=== PATIENT | female | born 1965 | race Two or more races ===

== ENCOUNTER 2023-04-09 07:23 | Outpatient (OUT) | payer BC, SELFPAY ==
[2023-04-09 07:49] LABS: Basophils Percent Auto 0.7 % (0.2-2.0); Eosinophils Absolute Auto 0.1 10^3/uL (0.0-0.7); Hematocrit 43.2 % (36.0-48.0); Immature Granulocytes Abs Auto 0.02 10^3/uL (0.00-0.03); Immature Granulocytes Pct Auto 0.4 % (0.0-0.5); Lymphocytes Absolute Auto 2.5 10^3/uL (1.2-3.8); Lymphocytes Percent Auto 44.1 % (20.5-60.0); Mean Corpuscular HGB Conc 34.7 g/dL (29.9-35.2); Mean Corpuscular Hemoglobin 32.5 pg (26.7-34.0); Mean Corpuscular Volume 93.5 fL (81.0-99.0); Mean Platelet Volume 10.2 fL (9.5-13.5); Monocytes Absolute Auto 0.5 10^3/uL (0.3-0.8); Monocytes Percent Auto 9.1 % (1.7-12.0); Neutrophils Absolute Auto 2.4 10^3/uL (1.4-6.5); Neutrophils Percent Auto 43.7 % (43.0-75.0); Platelet Count 216 10^3/uL (150-450); Red Blood Count 4.62 10^6/uL (4.20-5.40); Red Cell Distribution Width 12.2 % (11.0-15.0); White Blood Count 5.6 10^3/uL (4.0-11.0)
[2023-04-09 07:56] LABS: Estimated Average Glucose 108 mg/dL; Glycohemoglobin A1C 5.4 % (4.5-6.2)
[2023-04-09 08:11] LABS: Alanine Aminotransferase 27 U/L (14-59); Albumin Globulin Ratio 1.1; Albumin Level 3.9 g/dL (3.4-5.0); Alkaline Phosphatase 75 U/L (46-116); Anion Gap 10.6; Aspartate Amino Transferase 26 U/L (15-37); BUN Creatinine Ratio 13.8; Bilirubin Total 0.5 mg/dL (0.2-1.0); Calcium 9.1 mg/dL (8.5-10.1); Carbon Dioxide 28.8 mmol/L (21.0-32.0); Chloride 105 mmol/L (98-107); Chol HDL Ratio 3.6; Cholesterol 236 mg/dL (<=200); Estimated GFR (African America >60 (>=60); Estimated GFR (Non-African Ame >60 (>=60); Globulin 3.4 g/dL; Glucose 107 mg/dL (74-106); HDL Cholesterol 66 mg/dL (40-60); Potassium 4.4 mmol/L (3.5-5.1); Sodium 140 mmol/L (136-145); Total Protein 7.3 g/dL (6.4-8.2); Triglycerides 154 mg/dL (<=150); VLDL CHOLESTEROL 30.8 mg/dL
== END 2023-04-09 07:24 | disposition home or self-care (01) ==
PROVIDERS: PCP Internal Medicine; Visit Provider Internal Medicine
DX: Z00.00 Encounter for general adult medical examination without abnormal findings (principal)
CPT/HCPCS: 36415; 80053; 80061; 83036; 85025

== ENCOUNTER 2023-12-17 10:28 | Outpatient (OUT) | payer BC, SELFPAY ==
--- NOTE | 2023-12-17 10:32 | US_ITS ---
[address] [address] Patient Name: SRINIVAS AVILES MRN: [id number] date: 1965 Sex: F Assigned Patient Location: US Current Patient Location: US Accession/Order Number: [id number] Exam Date: 12/17/2023 10:45 Report Date: 12/17/2023 11:33 At the request of: NON-STAFF PHYSICIAN Procedure: US thyroid EXAMINATION: US thyroid HISTORY: nontoxic single thyroid nodule E04.1 COMPARISON: 02/28/2022 TECHNIQUE: Sonographic images of the thyroid gland were obtained. FINDINGS: The right thyroid lobe measures 3.9 x 0.9 x 1.3 cm. Single nodule. The thyroid isthmus measures 1.1 mm. 2 focal nodules The left thyroid lobe measures 3.7 x 1.0 x 1.0 cm. No focal nodules The most suspicious nodule: Thyroid isthmus. 1.6 x 1.1 x 0.8 cm. Mixed solid and cystic, hypoechoic, wide, smooth margins, no calcifications. TR 3 US/US thyroid IMPRESSION: 1.6 cm thyroid isthmus TR 3 nodule. 1 year follow-up recommended TI-RADS: The [employer] TI-RADS committee's white paper recommendations for thyroid lesions classified as TR3 (mildly suspicious) are listed below: > 1.5 cm. Follow-up ultrasound in 1, 3, and 5 years. > 2.5 cm. FNA. J. Am Graciela Radiol 2017;14:587-595. Electronically authenticated by: CHAPO NGUYEN Date: 12/17/2023 11:33
== END 2023-12-17 10:29 | disposition home or self-care (01) ==
LOC: US 10:28
PROVIDERS: PCP Internal Medicine
DX: E04.1 Nontoxic single thyroid nodule (principal)
CPT/HCPCS: 76536

== ENCOUNTER 2023-12-17 11:09 | Outpatient (OUT) | payer BC, SELFPAY ==
[2023-12-17 11:38] LABS: Basophils Absolute Auto 0.1 10^3/uL (0.0-0.1); Basophils Percent Auto 0.7 % (0.2-2.0); Eosinophils Absolute Auto 0.1 10^3/uL (0.0-0.7); Eosinophils Percent Auto 1.1 % (0.9-7.0); Hematocrit 42.7 % (36.0-48.0); Hemoglobin 14.4 g/dL (12.0-16.0); Immature Granulocytes Abs Auto 0.02 10^3/uL (0.00-0.03); Immature Granulocytes Pct Auto 0.3 % (0.0-0.5); Lymphocytes Percent Auto 40.4 % (20.5-60.0); Mean Corpuscular HGB Conc 33.7 g/dL (29.9-35.2); Mean Corpuscular Hemoglobin 31.6 pg (26.7-34.0); Mean Corpuscular Volume 93.6 fL (81.0-99.0); Monocytes Absolute Auto 0.6 10^3/uL (0.3-0.8); Monocytes Percent Auto 8.4 % (1.7-12.0); Neutrophils Absolute Auto 3.7 10^3/uL (1.4-6.5); Neutrophils Percent Auto 49.1 % (43.0-75.0); Platelet Count 241 10^3/uL (150-450); Red Blood Count 4.56 10^6/uL (4.20-5.40); Red Cell Distribution Width 11.9 % (11.0-15.0); White Blood Count 7.4 10^3/uL (4.0-11.0)
[2023-12-17 12:37] LABS: Alanine Aminotransferase 26 U/L (14-59); Albumin Globulin Ratio 1.2; Alkaline Phosphatase 82 U/L (46-116); Anion Gap 8.6; Aspartate Amino Transferase 21 U/L (15-37); BUN Creatinine Ratio 15.7; Bilirubin Total 0.6 mg/dL (0.2-1.0); Calcium 9.1 mg/dL (8.5-10.1); Carbon Dioxide 30.4 mmol/L (21.0-32.0); Chloride 105 mmol/L (98-107); Estimated GFR (African America >60 (>=60); Estimated GFR (Non-African Ame >60 (>=60); Globulin 3.3 g/dL; Glucose 83 mg/dL (74-106); Sodium 140 mmol/L (136-145); Total Protein 7.3 g/dL (6.4-8.2)
== END 2023-12-17 11:10 | disposition home or self-care (01) ==
LOC: LAB 11:10
PROVIDERS: PCP Internal Medicine; Visit Provider Internal Medicine Rheumatology
DX: E04.1 Nontoxic single thyroid nodule (principal); M15.0 Primary generalized (osteo)arthritis; Z79.899 Other long term (current) drug therapy
CPT/HCPCS: 36415; 76536; 80053; 85025

== ENCOUNTER 2024-02-24 12:56 | Outpatient (OUT) | payer BC, SELFPAY ==
--- NOTE | 2024-02-24 13:04 | XR_ITS ---
[address] [address] Patient Name: SRINIVAS AVILES MRN: [id number] date: 1965 Sex: F Assigned Patient Location: [facility] Current Patient Location: [facility] Accession/Order Number: [id number] Exam Date: 02/24/2024 13:25 Report Date: 02/24/2024 14:26 At the request of: LIA JARA Procedure: XR DEXA axial skeleton EXAMINATION: XR DEXA axial skeleton, 02/24/2024 1:25 PM EDT HISTORY: Osteoporosis COMPARISON: 2016. TECHNIQUE: Dual-energy X-ray absorptiometry (DEXA) bone density study performed for the axial skeleton. HISTORY: Osteoporosis FINDINGS: Bone mineral density AP spine L1-L4 measures 1.003 g/sq cm. T score -1.5. WHO classification: Osteopenia Bone mineral density of the femurs is 0.920 g/sq cm. T score -0.7. WHO classification: Normal XR/XR DEXA axial skeleton IMPRESSION: Osteopenia. Moderate fracture risk Electronically authenticated by: CHAPO NGUYEN Date: 02/24/2024 14:26
--- NOTE | 2024-02-24 13:10 | MM_ITS ---
Patient Name: SRINIVAS AVILES MR#: [id number] : 1965 Exam Date: 02/24/2024 Ordering Doctor: DR Dandre Osborn D.O. RADIOLOGY REPORT PROCEDURE: MM TOMOSYNTHESIS SCREENING BI COMPARISON: MG MAMM SCREEN 3D NHUNG CAD, 12/28/2022. MG MAMM SCREEN 3D NHUNG CAD, 12/19/2021. INDICATIONS: Screening Calculator Name NCI Breast Cancer Risk Assessment Tool 5 Year Breast Cancer Risk 1.80% Lifetime Breast Cancer Risk 9.00% Personal Breast Cancer No Personal Ovarian Cancer No Treatments None Family Cancers Mother with breast cancer at age ~60; Sister with thyroid cancer at age ~50; Niece with thyroid cancer at age 18; Sister with thyroid cancer at age ~55. LOCATION: [facility] BREAST COMPOSITION: There are scattered areas of fibroglandular density. FINDINGS: DIAGNOSTIC CATEGORY 1--NEGATIVE. NO CHANGE FROM COMPARISON ASSESSMENT. Scattered benign-appearing lymph nodes are present. RIGHT BREAST: No significant suspicious finding. LEFT BREAST: No significant suspicious finding. RECOMMENDATIONS: ROUTINE MAMMOGRAM AND CLINICAL EVALUATION IN 12 MONTHS. PLEASE NOTE: A NORMAL MAMMOGRAM DOES NOT EXCLUDE THE POSSIBILITY OF BREAST CANCER. A CLINICALLY SUSPICIOUS PALPABLE LUMP SHOULD BE BIOPSIED. Dictated by: Garo Tavares MD on 02/24/2024 at 14:08 Approved by: Garo Tavares MD on 02/24/2024 at 14:09
== END 2024-02-24 12:57 | disposition home or self-care (01) ==
LOC: RAD 12:56
PROVIDERS: PCP Internal Medicine; Visit Provider Internal Medicine Rheumatology
DX: Z12.31 Encounter for screening mammogram for malignant neoplasm of breast (principal); M81.0 Age-related osteoporosis without current pathological fracture; Z80.3 Family history of malignant neoplasm of breast; Z80.8 Family history of malignant neoplasm of other organs or systems; M85.80 Other specified disorders of bone density and structure, unspecified site
CPT/HCPCS: 77063; 77067; 77080

== ENCOUNTER 2024-08-24 10:32 | Outpatient (OUT) | payer MEDICARE, SELFPAY ==
--- NOTE | 2024-08-24 | US_ITS ---
The [address] [address] Patient Name: SRINIVAS AVILES MRN: [id number] date: 1965 Sex: F Assigned Patient Location: US Current Patient Location: LAB Accession/Order Number: [id number] Exam Date: 08/24/2024 11:45 Report Date: 08/26/2024 07:49 At the request of: BRINA HAIDER Procedure: US thyroid EXAMINATION: US thyroid HISTORY: FAMILY HISTORY OF MALIGNANT NEOPLASM OF THYROID COMPARISON: 12/17/2023 TECHNIQUE: Sonographic images of the thyroid gland were obtained. FINDINGS: The right thyroid lobe measures 4.0 x 1.3 x 1.3 cm. 3 focal nodules. The thyroid isthmus is thickened measuring 0.8 cm. Single nodule. The left thyroid lobe measures 4.6 x 1.2 x 1.1 cm. Single nodule The most suspicious nodule: Right thyroid lobe extending into the isthmus. 1.5 x 0.9 x 1.1 cm solid, isoechoic, wide, smooth margins, no calcifications. TR 3 US/US thyroid IMPRESSION: Stable multinodular thyroid TI-RADS: The [employer] TI-RADS committee's white paper recommendations for thyroid lesions classified as TR3 (mildly suspicious) are listed below: > 1.5 cm. Follow-up ultrasound in 1, 3, and 5 years. > 2.5 cm. FNA. J. Am Graciela Radiol 2017;14:[id number]. Electronically authenticated by: CHAPO NGUYEN Date: 08/26/2024 07:49
--- OUTSIDE RECORDS SUMMARY | 2024-08-24 10:53 | XMS_ITS | CCD ---
Author Organization [facility] Team Providers Care E Learning Specialist Name Role Phone PHYSICIAN, DEFAULT Admitting Unavailable PHYSICIAN, DEFAULT Attending Unavailable Arsh Robert Unavailable Francine Dobson Unavailable Dandre Osborn Unavailable VITALY, DR GONSALVES Primary Care Unavailable HAY ., DR HERNANDEZ Admitting Unavailable HAY ., DR HERNANDEZ Attending Unavailable HAY ., DR HERNANDEZ Consulting Unavailable VITALY, DR GONSALVES Admitting Unavailable BALL, DR GONSALVES Attending Unavailable BALL, DR GONSALVES Primary Care Unavailable VITALY, DR GONSALVES Consulting Unavailable TEJ, DR REGAN Pardo Consulting Unavailable VITALY, DR GONSALVES Admitting Unavailable BALL, DR GONSALVES Attending Unavailable BALL, DR GONSALVES Primary Care Unavailable BALL, DR GONSALVES Consulting Unavailable ZIEBER, DR REGAN Pardo Consulting Unavailable VITALY, DANDRE Primary Care Unavailable VENKATESH TAYLOR Admitting Unavailable VENKATESH TAYLOR Attending Unavailable SHANNAN COHEN Referring Unavailgiancarlo e DANDRE OSBORN Primary Care Unavailable MICHELLE AUGUSTIN Referring Unavailable VITALY, DANDRE May Primary Care Unavailable SHEA MAHAN Referring Unavailable VITALY, DANDRE May Primary Care Unavailable MIGUEL RANGEL Referring Unavailable VITALY, DANDRE May Primary Care Unavailable MIGUEL RANGEL Referring Unavailable VITALY, DANDRE May Primary Care Unavailable Ball , Dandre E Primary Care Provider SHEA MAHAN Attending Unavailable VITALY, DANDRE E Referring Unavailable VITALY, DANDRE E Primary Care Unavailable BISHEA KEITA Referring Unavailable VITALY, DANDRE May Primary Care Unavailable SHEA MAHAN Attending Unavailable VITALY, DANDRE E Referring Unavailable VITALY, DANDRE May Primary Care Unavailable NEGRITO, SHEA Referring Unavailable BALL, DANDRE E Primary Care Unavailable MIGUEL RANGEL Attending Unavailable VITALY, DANDRE May Referring Unavailable BALL, DANDRE E Primary Care Unavailable MICHELLE AUGUSTIN Attending Unavailable VITALY, DANDRE E Referring Unavailable VITALY, DANDRE E Primary Care Unavailable MIGUEL RANGEL Attending Unavailable BALL, DANDRE E Referring Unavailable DANDRE OSBORN Primary Care Unavailable Allergies Allergy Classification Reported Allergen(s) Allergy Type Date of Onset Reaction(s) Facility (1 source) patient allergy list reviewed by nurse or physicia Propensity to adverse reactions 6 Comment:[facility] Other (1 source) Allergies Reconciled Propensity to adverse reactions Unknown [facility] Other Medications Current Medications Medication Drug Class(es) Dates Sig (Normalized) Sig (Original) 0.5 ML semaglutide 0.5 MG/ML Auto-Injector [Wegovy] (2 sources) Start: 04-12-2023 inject 0.5 mL by subcutaneous injection every week Wegovy 0.25 MG/0.5ML 0.5 mL Subcutaneous weekly for 30 days Mar, Active azelastine hydrochloride 0.137 mg/actuat metered dose nasal spray (3 sources) Histamine-1 Receptor Antagonist take 2 spray(s) nasal route once daily Azelastine HCl 137 MCG/SPRAY 2 sprays in each nostril Nasally Once a day Active fluticasone propionate 0.05 mg/actuat metered dose nasal spray (3 sources) Corticosteroid take 2 spray(s) nasal route once daily Fluticasone Propionate 50 MCG/ACT 2 sprays (in each nostril) Nasally Once a day Active hydrocortisone 25 mg/ml topical cream (3 sources) Corticosteroid Start: 04-08-2023 Anusol-HC 2.5 % 1 application Externally Twice a day for 14 days Mar, Active meloxicam 15 mg oral tablet (13 sources) Nonsteroidal Anti-inflammatory Drug Start: 05-12-2024 take 1 tablet by mouth once daily as needed for arthritis meloxicam (MOBIC) 15 mg tablet TAKE 1 TABLET BY MOUTH EVERY DAY NEEDED FOR ARTHRITIS FLARE 05/12/2024 Active take 1 tablet by pj once daily as needed Meloxicam 15 MG 1 tablet Orally Once a d ay as needed Active Completed/Discontinued Medications Medication Drug Class(es) Dates Sig (Normalized) Sig (Original) Airborne - (12 sources) Airborne - as di rected Orally Not-Taking Airborne - as di rected Orally Active betamethasone 3 mg/ml / betamethasone acetate 3 mg/ml injectable suspension (1 source) Corticosteroid Start: 08-05-2024 End: 08-05-2024 6 mg, intra-articular, One-Time Injection, Starting on Sat08/05/24 at 1017, For 1 dose Calcium (12 sources) Phosphate Binder, Calcium Calcium 150 MG as directed Orally Not-Taking Calcium 150 MG a s directed Orally Active diclofenac sodium 0.01 mg/mg topical gel (6 sources) Nonsteroidal Anti-inflammatory Drug Start: 05-09-2022 Voltaren 1 % appl y 1-2 grams to affected area Transdermal twice a day as needed for 30 days Apr, Not-Taking Multi For Her - (12 sources) Multi For Her - as directed Orally Not-Taking Multi For Her - as directed Orally Active Naproxen (6 sources) Nonsteroidal Anti-inflammatory Drug Naproxen Not-Taking Naproxen Active triamcinolone acetonide 40 mg/ml injectable suspension (20 sources) Corticosteroid Start: 08-03-2022 Kenalog-40 Jul, 40 mg Start: 02-19-2017 Kenalog -40 mg February, 40 mg Start: 10-29-2016 Kenalog -40 mg Oct, 40 mg Problems Active Problems Problem Classification Problem Date Documented Da te Episodic/Chronic Esophageal disorders (5 sources) Esophageal disorders; Translations: [Gastroesophageal reflux disease with esophagitis without hemorrhage] Genitourinary symptoms and ill-defined conditions (6 sources) Mixed urinary incontinence; Translations: [Mixed incontinence] Onset: 06-25-2024 06-25-2024 Chronic Genitourinary symptoms and ill-defined conditions (2 sources) Dysuria; Translations: [Dysuria] Onset: 03-06-2022 Episodic Headache; including migraine (4 sources) New daily persistent headache; Translations: [New daily persistent headache (NDPH)] Chronic Hemorrhoids (4 sources) External hemorrhoids; Translations: [Residual hemorrhoidal skin tags] Episodic Intracranial injury (4 sources) Concussion with no loss of consciousness; Translations: [Concussion without loss of consciousness, initial encounter] Episodic Osteoarthritis (20 sources) Localized, primary osteoarthritis of the wrist; Translations: [Primary osteoarthritis, unspecified hand] Onset: 01-23-2016 Resolved: 11-26-2019 08-05-2024 Chronic Osteoporosis (2 sources) Primary osteoporosis; Translations: [Age-related osteoporosis without current pathological fracture] Onset: 01-12-2019 Resolved: 11-26-2019 Chronic Other and unspecified benign neoplasm (1 source) Benign lipomatous tumor; Translations: [Benign lipomatous neoplasm of skin and subcutaneous tissue of unspecified limb] Episodic Other bone disease and musculoskeletal deformities (1 source) Bone density finding; Translations: [Other specified disorders of bone density and structure, unspecified site] Episodic Other connective tissue disease (12 sources) Trochanteric bursitis of left hip; Translations: [Trochanteric bursitis, left hip] Episodic Other connective tissue disease (2 sources) Radial styloid tenosynovitis [de Quervain] Onset: 05-09-2022 Resolved: 05-09-2022 Episodic Other connective tissue disease (2 sources) Synovitis and tenosynovitis, unspecified Onset: 05-09-2022 Resolved: 05-09-2022 Episodic Other connective tissue disease (3 sources) Pain in left finger(s); Translations: [PAIN IN LEFT FINGERS] Onset: 10-13-2022 Episodic Other connective tissue disease (2 sources) Radial styloid tenosynovitis; Translations: [Radial styloid tenosynovitis] Onset: 03-06-2016 Resolved: 11-26-2019 Episodic Other connective tissue disease (1 source) Disorder of soft tissue; Translations: [Other specified soft tissue disorders] Episodic Other ear and sense organ disorders (1 source) Hearing loss; Translations: [Unspecified hearing loss, bilateral] Chronic Other nervous system disorders (12 sources) Chronic pain; Translations: [Other chronic pain] Chronic Other nervous system disorders (3 sources) Other chronic pain; Translations: [Other chronic pain] Onset: 02-13-2022 Resolved: 03-29-2022 Chronic Other nervous system disorders (1 source) Other acute postprocedural pain; Translations: [Other acute postprocedural pain] Onset: 02-26-2024 Episodic Other non-traumatic joint disorders (12 sources) Hip pain; Translations: [Pain in unspecified hip] Episodic Other non-traumatic joint disorders (2 sources) Pain in right wrist Onset: 05-09-2022 Resolved: 05-09-2022 Episodic Other non-traumatic joint disorders (2 sources) Arthralgia of the pelvic region and thigh; Translations: [Pain in joint, pelvic region and thigh] Onset: 06-23-2015 Resolved: 11-26-2019 Episodic Other non-traumatic joint disorders (1 source) Pain in left wrist; Translations: [Pain in left wrist] Onset: 05-13-2024 Episodic Other non-traumatic joint disorders (1 source) Other instability, right wrist; Translations: [Other instability, right wrist] Onset: 07-22-2024 Episodic Other nutritional; endocrine; and metabolic disorders (2 sources) Overweight Episodic Other screening for suspected conditions (not mental disorders or infectious disease) (9 sources) Encounter for screening mammogram for malignant neoplasm of breast; Translations: [Patient encounter status] Onset: 12-28-2022 Episodic Other upper respiratory infections (2 sources) Acute maxillary sinusitis; Translations: [Acute maxillary sinusitis] Onset: 01-27-2018 Resolved: 11-26-2019 Episodic Prolapse of female genital organs (3 sources) Midline cystocele; Translations: [Cystocele, midline] Chronic Residual codes; unclassified (12 sources) Postprocedural state finding; Translations: [Other specified postprocedural states] Episodic Residual codes; unclassified (1 source) Family history of malignant neoplasm of breast; Translations: [FAMILY HX MALIG NEOPLASM OF BREAST] Onset: 01-05-2023 Episodic Residual codes; unclassified (1 source) Family history of malignant neoplasm of other organs or systems; Translations: [FAM HX MALIG NEOPLASM OTH ORGN/SYS] Onset: 01-05-2023 Episodic Residual codes; unclassified (1 source) Postmenopausal state; Translations: [Asymptomatic menopausal state] Episodic Residual codes; unclassified (1 source) Other specified postprocedural states; Translations: [Other specified postprocedural states] Onset: 02-26-2024 Episodic Screening and history of mental health and substance abuse codes (1 source) Encounter for screening for depression; Translations: [Encounter for screening for depression] Onset: 06-25-2024 Episodic Spondylosis; intervertebral disc disorders; other back problems (12 sources) Lumbar spondylosis; Translations: [Spondylosis without myelopathy or radiculopathy, lumbar region] Onset: 06-23-2015 Resolved: 07-12-2022 Chronic Sprains and strains (6 sources) Whiplash injury to neck; Translations: [Sprain of ligaments of cervical spine, initial encounter] Resolved: 05-13-2020 Episodic Thyroid disorders (6 sources) Nontoxic single thyroid nodule; Translations: [Thyroid nodule] Onset: 03-06-2022 Chronic Unclassified (1 source) Gynecologic Exam Onset: 06-25-2024 Unclassified (1 source) Low back pain, unspecified; Translations: [Low back pain, unspecified] Onset: 01-31-2024 Viral infection (1 source) Disease caused by 2019-nCoV; Translations: [COVID-19] Past or Other Problems Problem Classification Problem Date Documented Date Episodic/Chronic Bacterial infection; unspecified site (1 source) Bacterial infectious disease; Translations: [Bacterial infection, unspecified, in conditions classified elsewhere and of unspecified site] Onset: 01-27-2018 Resolved: 11-26-2019 Episodic Mood disorders (2 sources) Mood disorders Onset: 06-25-2024 06-25-2024 Other and unspecified benign neoplasm (1 source) Lipoma (clinical); Translations: [Lipoma of unspecified site] Onset: 06-23-2015 Resolved: 11-26-2019 Episodic Other connective tissue disease (2 sources) Trochanteric bursitis, left hip Onset: 02-13-2022 Resolved: 03-29-2022 Episodic Other connective tissue disease (1 source) Specific bursitis often of occupational origin; Translations: [Specific bursitides often of occupational origin] Onset: 01-23-2016 Resolved: 11-26-2019 Episodic Other ear and sense organ disorders (1 source) Sensorineural hearing loss, bilateral; Translations: [Sensorineural hearing loss, bilateral] Onset: 01-12-2019 Resolved: 11-26-2019 Chronic Other non-traumatic joint disorders (2 sources) Pain in unspecified hip Onset: 02-13-2022 Resolved: 03-29-2022 Episodic Other non-traumatic joint disorders (1 source) Disorder of bursa of shoulder region; Translations: [Unspecified disorders of bursae and tendons in shoulder region] Onset: 04-09-2016 Resolved: 11-26-2019 Episodic Other nutritional; endocrine; and metabolic disorders (2 sources) Overweight; Translations: [Overweight] Onset: 01-23-2016 Resolved: 11-26-2019 Episodic Other nutritional; endocrine; and metabolic disorders (2 sources) Body mass index 25-29 - overweight; Translations: [Body mass index 28.0-28.9, adult] Onset: 01-23-2016 Resolved: 11-26-2019 Episodic Other upper respiratory disease (1 source) Chronic pharyngitis; Translations: [Chronic pharyngitis] Resolved: 05-13-2020 Chronic Residual codes; unclassified (1 source) Family history of cancer; Translations: [Family history of malignant neoplasm of other organs or systems] Resolved: 01-23-2021 Episodic Residual codes; unclassified (1 source) H/O: risk factor; Translations: [Other specified personal history presenting hazards to health] Resolved: 11-26-2019 Episodic Residual codes; unclassified (1 source) Pain Onset: 01-31-2024 Episodic Rheumatoid arthritis and related disease (1 source) Rheumatoid arthritis; Translations: [Rheumatoid arthritis, unspecified] Resolved: 11-26-2019 Chronic Skin and subcutaneous tissue infections (2 sources) Cellulitis of left finger; Translations: [Carbuncle of neck] Onset: 02-08-2016 Resolved: 11-26-2019 Episodic Spondylosis; intervertebral disc disorders; other back problems (3 sources) Low back pain; Translations: [Lumbago] Onset: 11-15-2016 Resolved: 11-26-2019 Episodic Unclassified (2 sources) Other low back pain M54.59 Onset: 02-13-2022 Resolved: 03-29-2022 Unclassified (2 sources) Onset: 06-25-2024 06-25-2024 Results Test Name Value Interpretation Reference Range Facility $ Medium Joint Injectionon 1 Miguel Rangel MD 08/05/2024 9:50 PM $ Medium Joint Injection (DRUJ) on 08/05/2024 10:17 AM Indications: pain Details: 25 G needle, dorsal approach Medications: 6 mg betamethasone acet & sod phos 6 mg/mL Outcome: tolerated well, no immediate complications Procedure, treatment alternatives, risks and benefits explained, specific risks discussed. Consent was given by the patient. Patient was prepped and draped in the usual sterile fashion. MANUALLY TRANSCRIBED RESULTS [facility] MR ARTHROGRAM WRIST RT W CON Ton 07-23-2024 MR ARTHROGRAM WRIST RT W CONT MR ARTHROGRAM WRIST RT W CONT HISTORY AND/OR TECH NOTES Suma Loveos a 59 y.o. year old female Exam:MR arthrogram wrist right with contrast Diagnosis:DRUJ (distal radioulnar joint) arthrosis, primary, right DRUJ (distal radioulnar joint) instability, post-traumatic, right Patient Symptoms:pt. States that she is having weakness in her right wrist. ?She stats that feels as if it is not in place. ?She also has some pain. ?Follow up to x-rays that were done. Pertinent Cancer and Surgical History:none Markers:none Image count: 7 Series PROCEDURE MRI of the right wrist after arthrogram injection of contrast done and reported separate COMPARISON May 13 FINDINGS Adequate contrast within the radiocarpal and ulnar carpal joint recess No contrast seen passing into the distal intercarpal row or into the distal radioulnar joint capsule There is significant fluid however and capsular thickening at the distal radial ulnar joint and similarly extending to the ulnar carpal recess. This may relate to some capsular thickening and/or synovitis It looks like the volar aspect of the distal radioulnar joint capsule may be disrupted or deficient with dorsal subluxation of the distal ulna degenerated into a bulging the skin surface in that region There is deformity of the proximal and ulnar aspect of the triangular fibrocartilage without a discrete tear or fragmentation otherwise The extensor carpi ulnaris looks intact without significant fluid along the tendon sheath. Mild heterogeneity and like deformity of the course suggesting some tendinopathy The scapholunate and lunotriquetral ligaments look intact There is mild cystic change in the lunate There is no fracture or AVN evident There is no advanced wrist arthritis Some fluid and contrast surrounding the dorsal wrist and extensor tendons may be related to the injection The look of the hamate looks grossly intact There is some loculated fluid at the volar radial margin of the wrist. This fills with contrast and suggest some synovial outpouching from the radiocarpal joint IMPRESSION: Findings suggest severe laxity or instability of the distal radial ulnar joint, particularly along the volar capsule margin, with ulnar negative variance and dorsal subluxation of the ulnar capsule There is what looks like severe capsular thickening and proliferation at the distal radial ulnar joint and ulnar carpal recess and some deformity of either fibrocartilage proper The trochlear fibrocartilage complex otherwise looks grossly intact without other malalignment, fracture, AVN, or advanced arthritis There also appears to be some synovial proliferation in the intercarpal and radiocarpal joint recesses with some synovial protrusion toward the volar radial aspect of the wrist Finalized by Sixto Jason MD on 07/23/2024 4:02 PM Normal [facility] [place] MR/CT ARTHROGRAM WRIST RT W INJon 07-22-2024 [place] MR/CT ARTHROGRAM WRIST RT W INJ [place] MR/CT ARTHROGRAM WRIST RT W INJ Indication: Chronic right wrist pain. Consent: Informed consent was obtained from the alert and oriented patient. Patient understands procedure and all of her questions were answered. Timeout: [place] timeout verification procedure was performed. PROCEDURE: Spot for needle passage was selected fluoroscopically at radial scaphoid joint. Overlying skin was prepped and draped in normal sterile fashion and anesthetized 1% lidocaine. 25-gauge butterfly needle was then advanced into the joint space. Injection of tiny amount of Omnipaque 300 contrast medium shows satisfactory position. Approximately 5 cc of mixture of dilute ProHance and saline was then injected. Reference air kerma 0.4 milligray. Patient tolerated the procedure well without significant immediate complication. 2 images were obtained. IMPRESSION: 1. Fluoroscopic guidance for right wrist injection for MRI arthrogram. Please see MRI arthrogram report dictated separately. Finalized by Ros Pantoja MD on 07/22/2024 4:47 PM Normal [facility] Cytologyon 06-25-2024 Cytology Normal [facility] Comment on above: Result Comment: [facility] [address] [place] [address] Gynecologic Cytology Consultation Patient Name:ROSENDO AVILESB:1965 (Age: 59)Gender:FTaken:4Reported:07/18/2024hysician(s):Michelle Augustin APRN-[facility] ([phone])Copy To: Rec. #:[id number]: #[id number] Final Cytologic Interpretation ThinPrep Pap Test (Cervical): Satisfactory for evaluation. NEGATIVE FOR INTRAEPITHELIAL LESION OR MALIGNANCY. The cytologic changes of atrophy are noted. 07/18/2024 Interpretation performed at [facility], [address] [place] [id number], License number: [id number]. Electronically Signed Out By BRUNA Castillo (ASCP) Date of Last Menstrual Period: (None Given) Other Clinical Conditions: Menopausal Clinical History: POSTMENOPAUSAL Z01.419 Plastic Design Applier exam wo/abn findings Source of Specimen ThinPrep Pap Test (Cervical) Thin Prep Pap (WINDOWS SYSTEMS ADMIN) Fee Code(s): G0145 The Pap test is a screening test with an inherent, but low, probability of error. The Pap test is primarily effective for the diagnosis and prevention of squamous cell carcinoma. Regular screening is critical for prevention. ThinPrep liquid-based slides, which meet the Recreation Programmer criteria for automated screening, have been screened by the ThinPrep Imaging System (as of 06/30/07) along with an additional manual rescreening by a classification and treatment director and, if indicated, by a pathologist. HIGH RISK HPV W/GENOon 06-25 HPV 31+33+35+39+45+51+52 +56+58+59+66+68 DNA ORION+probe Ql (Cvx) HPV SPECIMEN TYPE ThinPrep HPV 16 Negative (qualifier value) HPV 18 Negative (qualifier value) OTHER HIGH RISK HPV Negative (qualifier value) HPV types 31,33,35,39,45,52,56 ,58,59,66 and 68 DNA were undetectable. Normal [facility] Comment on above: Performed By: #### 7 1431-1 #### [facility] ([id number]) [address] [place] [address], [place] [address] [facility] ([id number]) [address] [place] [address], [address] [place] [address] MR CERVICAL SPINE WO CONTon 05-22-2024 MR CERVICAL SPINE WO CONT MR CERVICAL SPINE WO CONT Study: Cervical spine MRI without contrast. History: Chronic neck pain Comparison: November 28, 2007 Technique: Routine multiplanar multisequence MR imaging of the cervical spine was performed without contrast. Findings: C2-3 unremarkable Minimal disc bulging C3-4 without stenosis and unchanged C4-5 shows minimal posterior disc bulging without stenosis C5-6 shows moderate posterior disc osteophyte complex and facet hypertrophy unchanged with currently mild central canal stenosis and mild bilateral foraminal narrowing C6-7 shows mild posterior disc bulging without stenosis C7-T1 appropriate Appropriate signal within the vertebra setting for some mild discogenic signal at C5-6 Appropriate signal within posterior elements and cervical cord IMPRESSION: Multilevel disc disease and facet arthropathy with only mild central canal stenosis and mild bilateral foraminal narrowing C5-6, without acute change Finalized by Taco Arora MD on 05/22/2024 7:40 AM Normal [facility] XR WRIST LT MIN 3 VWSon 08-0 XR WRIST LT MIN 3 VWS XR WRIST LT MIN 3 VWS XR WRIST LT MIN 3 VWS Clinical history:Left wrist pain Comparison: None. Findings: Radiocarpal, intercarpal and first carpometacarpal joint degenerative change. No acute process fracture dislocation. Osteopenia. Impression: Degenerative changes without acute process identified. Finalized by Jarred Nelson MD on 05/14/2024 12:58 PM Normal [facility] XR WRIST RT MIN 3 VWSon 08-0 XR WRIST RT MIN 3 VWS XR WRIST RT MIN 3 VWS XR WRIST RT MIN 3 VWS CLINICAL HISTORY: Right wrist pain. COMPARISON: None. FINDINGS: 3 views of the right wrist. No acute fracture. No aggressive osseous lesion. Mild negative ulnar variance. Diffuse osseous demineralization. Alignment is otherwise within normal limits. IMPRESSION: * No acute fracture or malalignment. * Mild negative ulnar variance. Finalized by Shant Burns MD on 05/14/2024 1:01 PM Normal [facility] XR FOOT LEFT (MIN 3 VIEWS)on 02-27-2024 XR FOOT LEFT (MIN 3 VIEWS) EXAMINATION: THREE XRAY VIEWS OF THE LEFT FOOT 02/26/2024 10:48 am COMPARISON: None. HISTORY: ORDERING SYSTEM PROVIDED HISTORY: post op TECHNOLOGIST PROVIDED HISTORY: post op Reason for Exam: post op left foot hardware removal FINDINGS: Status post left foot hardware removal. No obvious complications. No acute fractures or malalignment. Soft tissue swelling around the foot. IMPRESSION: Status post left foot hardware removal. No obvious complications. Interpreted by: Rebecca Arana MD Signed by: Rebecca Arana MD 02/27/24 Final result Normal [facility] MG MAMM SCREEN 3D NHUNG CADon 12-28-2022 MG MAMM SCREEN 3D NHUNG CAD Patient: BRIDGER AVILES Exam Date: 12/28/2022 : 1965 Gender:F Ordering : DR DANDRE OSBORN D.O. Admission #: [id number] Family : Order #: [id number] CLICK HERE TO VIEW EXAM RADIOLOGY REPORT PROCEDURE: MAMMOGRAM SCREENING 3D BILATERAL CAD COMPARISON: MG MAMM SCREEN 3D NHUNG CAD, 12/19/2021. MG MAMM SCREEN NHUNG W CAD, 11/08/2020. MG MAMM SCREEN NHUNG W CAD, 07/09/2019. MG MAMM NHUNG SCRN W CAD DIG, 11/18/2010. INDICATIONS: Screening mammography Calculator Name NCI Breast Cancer Risk Assessment Tool 5 Year Breast Cancer Risk 1.70% Lifetime Breast Cancer Risk 9.50% Personal Breast Cancer No Personal Ovarian Cancer No Treatments None Family Cancers Mother with breast cancer at age 60; Sister with thyroid cancer at age 50; Niece with thyroid cancer at age 18; Sister with thyroid cancer at age 55. LOCATION: [facility] BREAST COMPOSITION: Scattered areas fibroglandular density. FINDINGS: DIAGNOSTIC CATEGORY 1--NEGATIVE. RIGHT BREAST: No significant suspicious finding. No significant change has occurred. LEFT BREAST: No significant suspicious finding. No significant change has occurred. RECOMMENDATIONS: ROUTINE MAMMOGRAM AND CLINICAL EVALUATION IN 12 MONTHS. PLEASE NOTE: A NORMAL MAMMOGRAM DOES NOT EXCLUDE THE POSSIBILITY OF BREAST CANCER. A CLINICALLY SUSPICIOUS PALPABLE LUMP SHOULD BE BIOPSIED. Dictated by: Regan Allen M.D. on 12/28/2022 at 12:30 Approved by: Regan Allen M.D. 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 No significant degeneration seen. XR/XR wrist RT 2V IMPRESSION:Unremarka ble exam Impression dictated by: Teddy Long M.D.05/09/2022 5:03 PM Dictation Location: [place] [address] Transcribed By: [facility] 05/09/221702 Dictated By: Teddy Long DO 05/09/221701 Signed By: 05/09/22 170 [facility] XR wrist RT 2V [facility] [employer] Other XR wrist RT 2V [facility] [employer] Other XR wrist RT 2V [address] [place] [address] [employer] Other XR wrist [place] 2[place] [address] No [facility] [employer] Other XR wrist RT 2V XRay Report [employer] Other XR wrist RT 2V Signed [employer] Other XR wrist RT 2V Patient: Bridger Aviles MR#: [id number] [facility] Other XR wrist RT 2V 8497 [employer] Other XR wrist RT 2V : 1965 Acct:[id number] [facility] Other XR wrist RT 2V Age/Sex: 57 / F ADM Date: 05/09/22 [facility] Other XR wrist RT 2V Loc: SOXD Room: Type: [facility] Other XR wrist RT 2V Attending Dr: Francine Dobson MD [facility] Other XR wrist RT 2V Copies to: Francine Dobson MD [facility] Other XR wrist RT 2V Ordering Provider: Francine Dobson MD [facility] Other XR wrist RT 2V Date of Service: 05/09/22 [facility] Other XR wrist RT 2V XR/XR wrist RT 2V: Right wrist pain [facility] Other XR wrist RT 2V 2 viewsRIGHT wrist plain film [facility] Other XR wrist RT 2V COMPARISON:None [facility] Other XR wrist RT 2V 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 No significant degeneration seen. [facility] Other XR wrist RT 2V XR/XR wrist RT 2V [facility] Other XR wrist RT 2V IMPRESSION:Unremarka ble exam [facility] Other XR wrist RT 2V Impression dictated by: Teddy Long M.D.05/09/2022 5:03 PM [facility] Other XR wrist RT 2V Dictation Location: [place] [address] [facility] Other XR wrist RT 2V Transcribed By: JAMAL 05/09/22 [facility] Other XR wrist RT 2V Dictated By: Teddy Long DO 05/09/22 [facility] Other XR wrist RT 2V Signed By: [employer] Other XR wrist RT 2V 05/09/22 170 [employer] Other CBC AUTO DIFFon 02-28-2022 BASO # 0.1 103/ul Normal 0.0-0.1 [facility] Comment on above: Performed By: #### C BC #### [facility] [address] [place] [address] Dr. Shirin Veras Basophils/100 WBC (Bld) 0.8 % Normal 0.2-2.0 [facility] Comment on above: Performed By: #### C BC #### [facility] [address] [place] [address] Dr. Shirin Veras EO # 0.1 103/ul Normal 0.0-0.7 [facility] Comment on above: Performed By: #### C BC #### [facility] [address] [place] [address] Dr. Shirin Veras Eosinophils/100 WBC (Bld) 1.9 % Normal 0.9-7.0 [facility] Comment on above: Performed By: #### C BC #### [facility] [address] [place] [address] Dr. Shirin Veras Erythrocyte distribution width (RBC) [Ratio] 11.8 % Normal 11.0-15.0 [facility] Comment on above: Performed By: #### C BC #### [facility] [address] [place] [address] Dr. Shirin Veras Hematocrit (Bld) [Volume fraction] 44.3 % Normal 36.0-48.0 [facility] Comment on above: Performed By: #### C BC #### [facility] [address] [place] [address] Dr. Shirin Veras Hemoglobin (Bld) [Mass/Vol] 15.3 g/dL Normal 12.0-16.0 [facility] Comment on above: Performed By: #### C BC #### [facility] [address] [place] [address] Dr. Shirin Veras IG # 0.03 10e3/ul Normal 0.00-0.03 [facility] Comment on above: Performed By: #### C BC #### [facility] [address] [place] [address] Dr. Shirin Veras IG % 0.5 % Normal 0.0-0.5 [facility] Comment on above: Performed By: #### C BC #### [facility] [address] [place] [address] Dr. Shirin Veras LYMPH # 2.6 103/ul Normal 1.2-3.8 [facility] Comment on above: Performed By: #### C BC #### [facility] [address] [place] [address] Dr. Shirin Veras Lymphocytes/100 WBC (Bld) 40.4 % Normal 20.5-60.0 [facility] Comment on above: Performed By: #### C BC #### [facility] [address] [place] [address] Dr. Shirin Veras MANUAL DIFF REQ NO Normal [facility] Comment on above: Performed By: #### C BC #### [facility] [address] [place] [address] Dr. Shirin Veras MCH (RBC) [Entitic mass] 32.6 pg Normal 26.7-34.0 [facility] Comment on above: Performed By: #### C BC #### [facility] [address] [place] [address] Dr. Shirin Veras MCHC (RBC) [Mass/Vol] 34.5 g/dL Normal 29.9-35.2 [facility] Comment on above: Performed By: #### C BC #### [facility] [address] [place] [address] Dr. Shirin Veras MCV (RBC) [Entitic vol] 94.5 fL Normal 81.0-99.0 [facility] Comment on above: Performed By: #### C BC #### [facility] [address] [place] [address] Dr. Shirin Veras MONO # 0.5 103/ul Normal 0.3-0.8 [facility] Comment on above: Performed By: #### C BC #### [facility] [address] [place] [address] Dr. Shirin Veras Monocytes/100 WBC (Bld) 8.1 % Normal 1.7-12.0 [facility] Comment on above: Performed By: #### C BC #### [facility] [address] [place] [address] Dr. Shirin Veras NEUT # 3.1 103/ul Normal 1.4-6.5 [facility] Comment on above: Performed By: #### C BC #### [facility] [address] [place] [address] Dr. Shirin Veras Neutrophils/100 WBC (Bld) 48.3 % Normal 43.0-75.0 [facility] Comment on above: Performed By: #### C BC #### [facility] [address] [place] [address] Dr. Shirin Veras Platelet mean volume (Bld) [Entitic vol] 10.1 fL Normal 9.5-13.5 [facility] Comment on above: Performed By: #### C BC #### [facility] [address] [place] [address] Dr. Shirin Veras PLT 224 103/ul Normal 150-450 [facility] Comment on above: Performed By: #### C BC #### [facility] [address] [place] [address] Dr. Shirin Veras RBC 4.69 106/ul Normal 4.20-5.40 [facility] Comment on above: Performed By: #### C BC #### [facility] [address] [place] [address] Dr. Shirin Veras WBC 6.4 103/ul Normal 4.0-11.0 [facility] Comment on above: Performed By: #### C BC #### [facility] [address] [place] [address] Dr. Shirin Veras GLYCOHEMOGLOBIN A1Con 2021 ADA RECOMMENDATION SEE BELOW Normal [facility] Comment on above: Result Comment: ADA RECOMMENDED LIMIT 4.0 - 6.0 ADA THERAPEUTIC TARGET < 7.0 ACTION SUGGESTED > 7.0 Performed By: #### A 1C #### [facility] [address] [place] [address] [address] Shirin Veras Glucose [Mass/Vol] 114 mg/dL Normal [facility] Comment on above: Performed By: #### A 1C #### [facility] [address] [place] [address] [address] Shirin Veras HbA1c (Bld) [Mass fraction] 5.6 % Normal 4.5-6.2 [facility] Comment on above: Performed By: #### A 1C #### [facility] [address] [place] [address] Dr. Shirin Veras LIPID PROFILEon 02-28-2022 CHOL-HDL RATIO NORM SEE BELOW Normal [facility] Comment on above: Result Comment: 3.3 - 4.4 LOW RISK 4.4 - 7.1 AVERAGE RISK 7.1 - 11.0 MODERATE RISK >11.0 HIGH RISK Performed By: #### T SH, CMP, LIPID #### [facility] [address] [place] [address] [address] Shirin Veras Cholesterol [Mass/Vol] 254 mg/dL Critically high <=200 [facility] Comment on above: Performed By: #### T SH, CMP, LIPID #### [facility] [address] [place] [address] [address] Shirin Veras Cholesterol in HDL [Mass/Vol] 65 mg/dL Critically high 40-60 [facility] Comment on above: Performed By: #### T SH, CMP, LIPID #### [facility] [address] [place] [address] [address] Shirin Veras Cholesterol in LDL [Mass/Vol] 164.2 mg/dL Normal [facility] Comment on above: Performed By: #### T SH, CMP, LIPID #### [facility] [address] [place] [address] [address] Shirin Veras Cholesterol.total/Ch olesterol in HDL [Mass ratio] 3.9 {ratio} Normal [facility] Comment on above: Performed By: #### T SH, CMP, LIPID #### [facility] [address] [place] [address] [address] Shirin Veras HDL NORMAL > or = 60 mg/dl - LOW CARDIOVASCULAR RISK <40 mg/dl - HIGH CARDIOVASCULAR RISK Normal [facility] Comment on above: Performed By: #### T SH, CMP, LIPID #### [facility] [address] [place] [address] [address] Shirin Veras LDL CALC NORMAL SEE BELOW Normal [facility] Comment on above: Result Comment: <100 mg/dl OPTIMAL 100 - 129 mg/dl NEAR OR ABOVE OPTIMAL 130 - 159 mg/dl BORDERLINE HIGH 160 - 189 mg/dl HIGH >190 mg/dl VERY HIGH Performed By: #### T SH, CMP, LIPID #### [facility] [address] [place] [address] [address] Shirin Veras Triglyceride [Mass/Vol] 124 mg/dL Normal <=150 [facility] Comment on above: Performed By: #### T SH, CMP, LIPID #### [facility] [address] [place] [address] [address] Shirin Veras VLDL CALC 24.8 mg/dL Normal [facility] Comment on above: Performed By: #### T SH, CMP, LIPID #### [facility] [address] [place] [address] [address] Shirin Veras PROF 14(COMP METB)on 022 Albumin [Mass/Vol] 4.1 g/dL Normal 3.4-5.0 [facility] Comment on above: Performed By: #### T SH, CMP, LIPID #### [facility] [address] [place] [address] [address] Shirin Veras Albumin/Globulin [Mass ratio] 1.2 {ratio} Normal [facility] Comment on above: Performed By: #### T SH, CMP, LIPID #### [facility] [address] [place] [address] [address] Shirin Veras ALP [Catalytic activity/Vol] 79 U/L Normal 46-116 [facility] Comment on above: Performed By: #### T SH, CMP, LIPID #### [facility] [address] [place] [address] [address] Shirin Veras ALT [Catalytic activity/Vol] 30 U/L Normal 14-59 [facility] Comment on above: Performed By: #### T SH, CMP, LIPID #### [facility] [address] [place] [address] [address] Shirin Veras Anion gap [Moles/Vol] 11.4 mmol/L Normal [facility] Comment on above: Performed By: #### T SH, CMP, LIPID #### [facility] [address] [place] [address] [address] Shirin Veras AST [Catalytic activity/Vol] 22 U/L Normal 15-37 [facility] Comment on above: Performed By: #### T SH, CMP, LIPID #### [facility] [address] [place] [address] Dr. Shirin Veras Bilirubin [Mass/Vol] 0.5 mg/dL Normal 0.2-1.0 [facility] Comment on above: Performed By: #### T SH, CMP, LIPID #### [facility] [address] [place] [address] [address] Shirin Veras Calcium [Mass/Vol] 8.8 mg/dL Normal 8.5-10.1 [facility] Comment on above: Performed By: #### T SH, CMP, LIPID #### [facility] [address] [place] [address] [address] Shirin Veras Chloride [Moles/Vol] 102 mmol/L Normal 98-107 [facility] Comment on above: Performed By: #### T SH, CMP, LIPID #### [facility] [address] [place] [address] [address] Shirin Veras CO2 [Moles/Vol] 29.5 mmol/L Normal 21.0-32.0 [facility] Comment on above: Performed By: #### T SH, CMP, LIPID #### [facility] [address] [place] [address] [address] Shirin Veras Creatinine [Mass/Vol] 0.69 mg/dL Normal 0.55-1.02 [facility] Comment on above: Performed By: #### T SH, CMP, LIPID #### [facility] [address] [place] [address] [address] Shirin Veras EGFR-AF CAMBODIAN >60 Normal >=60 [facility] Comment on above: Performed By: #### T SH, CMP, LIPID #### [facility] [address] [place] [address] [address] Shirin Veras EGFR-NON AF CAMBODIAN >60 Normal >=60 [facility] Comment on above: Performed By: #### T SH, CMP, LIPID #### [facility] [address] [place] [address] [address] Shirin Veras Globulin (S) [Mass/Vol] 3.3 g/dL Normal [facility] Comment on above: Performed By: #### T SH, CMP, LIPID #### [facility] [address] [place] [address] [address] Shirin Veras Glucose [Mass/Vol] 90 mg/dL Normal 74-106 [facility] Comment on above: Performed By: #### T SH, CMP, LIPID #### [facility] [address] [place] [address] [address] Shirin Veras Potassium [Moles/Vol] 3.9 mmol/L Normal 3.5-5.1 [facility] Comment on above: Performed By: #### T SH, CMP, LIPID #### [facility] [address] [place] [address] [address] Shirin Veras Protein [Mass/Vol] 7.4 g/dL Normal 6.4-8.[address] [facility] Comment on above: Performed By: #### T SH, CMP, LIPID #### [facility] [address] [place] [address] [address] Shirin Veras Sodium [Moles/Vol] 139 mmol/L Normal 136-145 [facility] Comment on above: Performed By: #### T SH, CMP, LIPID #### [facility] [address] [place] [address] [address] Shirin Veras Urea nitrogen [Mass/Vol] 16.0 mg/dL Normal 7.0-18.0 [facility] Comment on above: Performed By: #### T SH, CMP, LIPID #### [facility] [address] [place] [address] Dr. Shirin Veras Urea nitrogen/Creatinine [Mass ratio] 23.2 mg/mg Normal [facility] Comment on above: Performed By: #### T SH, CMP, LIPID #### [facility] [address] [place] [address] Dr. Shirin Veras TSHon 02-28-2022 TSH 1.145 uIU/mL Normal 0.358-3.[address] [facility] Comment on above: Performed By: #### T SH, CMP, LIPID #### [facility] [address] [place] [address] Dr. Shirin Veras TSH RANGE SEE BELOW Normal [facility] Comment on above: Result Comment: <0.3 4 UIU/ml HYPERTHYROID 0.34-5.60 UIU/ml EUTHYROID >5.60 UIU/ml HYPOTHYROID Performed By: #### T SH, CMP, LIPID #### [facility] [address] [place] [address] Dr. Shirin Veras UA RANDOM W/MICROSCOPICon BACTERIA TRACE Abnormal NONE SEEN [facility] Comment on above: Performed By: #### U AMIC #### [facility] [address] [place] [address] Dr. Shirin Veras Bilirubin Ql (U) Negative Normal NEGATIVE [facility] Comment on above: Performed By: #### U AMIC #### [facility] [address] [place] [address] Dr. Shirin Veras CAST NONE SEEN Normal NONE SEEN [facility] Comment on above: Performed By: #### U AMIC #### [facility] [address] [place] [address] Dr. Shirin Veras Clarity (U) CLEAR Normal CLEAR [facility] Comment on above: Performed By: #### U AMIC #### [facility] [address] [place] [address] Dr. Shirin Veras Color (U) LT. YELLOW Normal YELLOW [facility] Comment on above: Performed By: #### U AMIC #### [facility] [address] [place] [address] [address] Shirin Veras Crystals LM Nom (Urine sed) NONE SEEN Normal NONE SEEN [facility] Comment on above: Performed By: #### U AMIC #### [facility] [address] [place] [address] [address] Shirin Veras Epithelial cells LM Ql (Urine sed) RARE Normal NONE SEEN /RARE [facility] Comment on above: Performed By: #### U AMIC #### [facility] [address] [place] [address] [address] Shirin Veras Glucose Ql (U) Negative Normal NEGATIVE [facility] Comment on above: Performed By: #### U AMIC #### [facility] [address] [place] [address] [address] Shirin Veras Hemoglobin Ql (U) Negative Normal NEGATIVE [facility] Comment on above: Performed By: #### U AMIC #### [facility] [address] [place] [address] [address] Shirin Veras Ketones Ql (U) Negative Normal NEGATIVE [facility] Comment on above: Performed By: #### U AMIC #### [facility] [address] [place] [address] [address] Shirin Veras LEUKOCYTES TRACE Abnormal NEGATIVE [facility] Comment on above: Performed By: #### U AMIC #### [facility] [address] [place] [address] [address] Shirin Veras MUCOUS TRACE Abnormal NONE SEEN [facility] Comment on above: Performed By: #### U AMIC #### [facility] [address] [place] [address] [address] Shirin Veras Nitrite Ql (U) Negative Normal NEGATIVE [facility] Comment on above: Performed By: #### U AMIC #### [facility] [address] [place] [address] [address] Shirin Veras pH (U) 6.0 [pH] Normal 5-9 [facility] Comment on above: Performed By: #### U AMIC #### [facility] [address] [place] [address] [address] Shirin Veras RBC 0-2 Normal 0-2 [facility] Comment on above: Performed By: #### U AMIC #### [facility] [address] [address] [address] Shirin Veras SPEC GRAVITY 1.025 Normal 1.005-<=1.025 [facility] Comment on above: Performed By: #### U AMIC #### [facility] [address] [place] [address] [address] Shirin Veras UA PROTEIN Negative Normal NEGATIVE/ TRACE [facility] Comment on above: Performed By: #### U AMIC #### [facility] [address] [address] [address] Shirin Veras Urobilinogen Qn (U) 0.2 {Laurie'U}/dL Normal 0.2 - 1. 0 [facility] Comment on above: Performed By: #### U AMIC #### [facility] [address] [place] [address] Dr. Shirin Veras WBC 2-5 Abnormal NONE SEEN [facility] Comment on above: Performed By: #### U AMIC #### [facility] [address] [place] [address] Dr. Shirin Veras US THYROIDon 02-28-2022 US THYROID EXAMINATION: US THYROID HISTORY: Non-toxic uninodular goiter COMPARISON: Ultrasound thyroid 03/21/2021 FINDINGS: RIGHT LOBE: Homogeneous echotexture containing a 5 mm TR 2 nodule. Lobe size: 4.1 x 0.8 x 1.3 cm LEFT LOBE: Normal size and echotexture. Lobe size: 3.4 x 0.8 x 1.3 cm ISTHMUS: Homogeneous echotexture containing a 17 x 13 x 8 mm TR 2 nodule and an 8 mm TR 3 nodule. Thickness: 16 mm IMPRESSION: 1. Grossly stable thyroid nodules. Follow-up imaging in one year is recommended. TR 3: The [employer] TI-RADS committee's white paper recommendations for thyroid lesions classified as TR3 (mildly suspicious) are listed below: > 1.5 cm. Follow-up ultrasound in 1, 3, and 5 years. > 2.5 cm. FNA. J. Am Graciela Radiol 2017;14:587-595. TR 2: TI-RADS 2: Benign nodules. Noticeably benign pattern (0% risk of malignancy) Electronically authenticated by: REGAN ALLEN Date: 2022-02-28 10:09 Normal [facility] VITAMIN D 25 OHon 02-28-2022 VIT D 25-OH 41.6 ng/mL Normal [facility] Comment on above: Performed By: #### V ITAD #### [facility] [address] [address] [address] Shirin Veras VIT D RANGES SEE BELOW Normal [facility] Comment on above: Result Comment: <20 ng/mL Vit D deficient 20 - <30 ng/mL Vit D insufficient 30 - 100 ng/mL Vit D sufficient >100 ng/mL Potential Toxicity Performed By: #### V ITAD #### [facility] [address] [address] [address] Shirin Veras XR hip LT min 2V(w/wo pelvis )*on 09-19-2021 XR hip LT min 2V(w/wo pelvis)* [facility] [place] [address] XRay Report Signed Patient: Bridger Aviles MR#: [id number] : 1965 Acct:[id number] Age/Sex: 56 / F ADM Date: 09/19/21 Loc: [facility] Room: Type: [facility] Attending Dr: Arsh Robert MD Ordering Provider: Arsh Robert MD Date of Service: 09/19/21 XR/XR hip LT min 2V(w/wo pelvis)*: Hip pain Copies to: Arsh Robert MD Pelvis and left hip 09/19/2021. CLINICAL DATA: Left hip pain. FINDINGS: An AP view of the pelvis and a lateral view of the left hip were obtained. No acute fracture or dislocation is identified. Minimal degenerative changes are seen along the acetabular roof. No bony erosion or destruction is visualized. XR/XR hip LT min 2V(w/wo pelvis)* IMPRESSION: Minimal degenerative changes. No acute bony abnormality. Impression dictated by: Curtis oHlland Jr., M.D.09/19/2021 7:03 PM Dictation Location: [place] [address] Transcribed By: [facility] 09/19/211902 Dictated By: Curtis Holland Jr, MD 09/19/211901 Signed By: 09/19/211902 [facility] Vital Signs Date Time Vital Sign Value Performing Clinician Facility 08-05-2024 09:53-0400 Body height 157.5 cm Miguel Rangel MD Work Phone: [employer] 08-05-2024 09:53-0400 Body mass index (BMI) [Ratio] 26.34 kg/m2 Miguel Rangel MD Work Phone: [employer] 08-05-2024 09:53-0400 Body weight 65.32 kg Miguel Rangel MD Work Phone: [employer] 04-08-2023 11:30-0400 Body height 157.48 cm Dandre Ball Other [facility] 04-08-2023 11:30-0400 Body mass index (BMI) [Ratio] 28.71 kg/m2 Dandre Ball Other [facility] 04-08-2023 11:30-0400 Body weight 71.22 kg Dandre Ball Other [facility] 04-08-2023 11:30-0400 Diastolic blood pressure 81 mm[Hg] Dandre Ball Other [facility] 04-08-2023 11:30-0400 Respiratory rate 12 /min Dandre Ball Other [facility] 04-08-2023 11:30-0400 Systolic blood pressure 131 mm[Hg] Dandre Ball Other [facility] Other 05-09-2022 16:00-0400 Body height 157.48 cm Francine Dobson Other [facility] Other 05-09-2022 16:00-0400 Body mass index (BMI) [Ratio] 28.53 kg/m2 Francine Dobson Other [facility] Other 05-09-2022 16:00-0400 Body weight 70.76 kg Francine Dobson Other [facility] Other 02-13-2022 16:15-0400 Body height 157.48 cm Arsh Robert Other [facility] Other 02-13-2022 16:15-0400 Body mass index (BMI) [Ratio] 28.53 kg/m2 Arsh Robert Other [facility] Other 02-13-2022 16:15-0400 Body weight 70.76 kg Arsh Robert Other [facility] Other Encounters Encounter Date Encounter Type Care Provider Facility Start: 08-05-2024 End: 08-05-2024 ambulatory [facility] Start: 08-05-2024 End: 08-05-2024 Office outpatient visit 15 minutes Miguel Rangel MD Work Phone: [facility] Comment on above: DRUJ (distal radioul sulaiman joint) arthrosis, primary, right (Primary Dx) Start: 07-28-2024 End: 07-28-2024 Telephone encounter Nimco Giles [facility] Physician s Obstetrics/Gynecology Start: 07-22-2024 End: 07-22-2024 ambulatory [facility] Start: 06-25-2024 End: 06-25-2024 ambulatory MICHELLE AUGUSTIN [facility] Start: 06-25-2024 Encounter for gynecological examination (general) (routine) without abnormal findings [facility] Start: 06-25-2024 End: 06-25-2024 ambulatory MICHELLE M [facility] Start: 06-25-2024 Encounter for gynecological examination (general) (routine) without abnormal findings [facility] Start: 06-11-2024 End: 06-11-2024 ambulatory [facility] Start: 05-20-2024 End: 05-20-2024 ambulatory [facility] Start: 05-13-2024 End: 05-13-2024 ambulatory [facility] Start: 03-17-2024 End: 03-17-2024 ambulatory [facility] Start: 02-26-2024 End: 02-26-2024 ambulatory DANDRE OSBORN [facility] Start: 01-31-2024 End: 01-31-2024 ambulatory [facility] Start: 05-13-2023 End: 05-13-2023 ambulatory Dandre Osborn Other [facility] Start: 05-13-2023 Telephone encounter Dandre Osborn [facility] Start: 04-11-2023 End: 04-11-2023 ambulatory Dandre Osborn Other [facility] Other Start: 04-11-2023 Telephone encounter Dandre URIAS [facility] Start: 04-08-2023 End: 04-08-2023 ambulatory Dandre Osborn Other [facility] Other Start: 04-08-2023 Encounter for genera l adult medical examination without abnormal findings Dandre Osborn [facility] Start: 04-08-2023 Periodic preventive med est patient 40-64yrs Dandre Osborn [facility] Start: 12-28-2022 End: 12-29-[address] DANDRE OSBORN Facility: Start: 10-13-2022 End: 10-13-[address] DANDRE OSBORN Facility:[facility] Start: 10-12-2022 End: 10-12-2022 ambulatory Dandre Osborn [facility] Start: 10-12-2022 Telephone encounter [facility]re [facility] Start: 08-03-2022 End: 08-03-2022 ambulatory Francine Calvsergio Other [facility] Other Start: 08-03-2022 Office outpatient vi sit 15 minutes Francine Calvey [facility] Start: 07-10-2022 Gynecological examination normal Dandre Osborn Other [facility] Other Start: 05-09-2022 End: 05-09-2022 ambulatory Francine Dobson Other [facility] Other Start: 05-09-2022 Office outpatient ne w 30 minutes Francine Calvey [facility] Start: 03-29-2022 End: 03-29-2022 ambulatory Arsh Robert Other [facility] Other Start: 03-29-2022 Office outpatient vi sit 15 minutes Arsh Robert [facility] [place] Start: 03-21-2022 (Procedure) Short Arsh Robert [facility] Start: 03-21-2022 End: 03-21-2022 ambulatory Arsh Robert Other [facility] Other Start: 03-14-2022 End: 03-14-2022 ambulatory Arsh Robert Other [facility] Other Start: 03-14-2022 Telephone encounter Arsh URIAS [facility] Start: 03-06-2022 Encounter for genera l adult medical examination without abnormal findings DR DANDRE OSBORN [facility] Start: 02-28-2022 End: 03-01-[address] DANDRE OSBORN Facility:[facility] Start: 02-28-2022 End: 03-01-2022 Encounter for general adult medical examination without abnormal findings DR DANDRE OSBORN Facility:[facility] Start: 02-21-2022 End: 02-21-2022 ambulatory Arsh Robert Other [facility] Other Start: 02-21-2022 Telephone encounter [facility] Start: 02-16-2022 Adult health examination Walter Osborn Other [facility] Other Start: 02-13-2022 End: 02-13-2022 ambulatory Arsh Robert Other [facility] Other Start: 02-13-2022 Office outpatient vi sit 15 minutes Arsh Robert [facility] [place] Start: 10-19-2021 Gynecological examination abnormal Dandre Osborn Other [facility] Other Start: 10-16-2021 End: 10-16-2021 ambulatory Arsh Robert Other [facility] Other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
== END 2024-08-24 10:33 | disposition home or self-care (01) ==
PROVIDERS: PCP Internal Medicine; Visit Provider Internal Medicine
DX: E04.2 Nontoxic multinodular goiter (principal); Z80.8 Family history of malignant neoplasm of other organs or systems
CPT/HCPCS: 76536

== ENCOUNTER 2025-03-17 09:02 | Outpatient (OUT) | payer MEDICARE, SELFPAY ==
--- NOTE | 2025-03-17 09:04 | US_ITS ---
The [address] [address] Patient Name: SRINIVAS AVILES MRN: [id number] date: 1965 Sex: F Assigned Patient Location: US Current Patient Location: LAB Accession/Order Number: [id number] Exam Date: 03/17/2025 10:13 Report Date: 03/17/2025 10:19 At the request of: NON-STAFF PHYSICIAN MD Procedure: US thyroid THYROID ULTRASOUND CLINICAL DATA: Follow-up thyroid nodularity COMPARISON: 08/24/2024 The right thyroid lobe measures 3.7 x 1.5 x 1.0 cm. The left lobe measures 3.3 x 1.2 x 0.6 cm. The isthmus measures 2 mm. The thyroid lobes are heterogeneous and hyperemic. At the superior pole on the right, there is still a small mixed echogenicity cystic and solid nodule measuring 3 x 4 x 2 mm, similar to the prior. At the midpole, there is a colloid cyst measuring 10 x 11 x 8 mm which was also present previously. At the right aspect of the isthmus, there is a solid nodule with small cystic components centrally (TI-RADS 3). It measures approximately 10 x 16 x 8 mm, which is not significantly changed. At the left isthmus, there is a hypoechoic nodule at the isthmus inferiorly measuring 8 x 4 x 11 mm. (TI-RADS 3) This is also similar. US/US thyroid IMPRESSION: HETEROGENEOUS THYROID WITH MILD HYPEREMIA. SIMILAR BILATERAL THYROID NODULARITY. Impression dictated by: Chula Moreira M.D. 03/17/2025 10:19 AM Dictation Location: [place] [address] Electronically authenticated by: [id number] Y Date: 03/17/2025 10:19
== END 2025-03-17 09:03 | disposition home or self-care (01) ==
LOC: US 09:02
DX: E04.1 Nontoxic single thyroid nodule (principal); R68.89 Other general symptoms and signs
CPT/HCPCS: 76536

== ENCOUNTER 2025-03-17 09:44 | Outpatient (OUT) | payer MEDICARE, SELFPAY ==
--- OUTSIDE RECORDS SUMMARY | 2025-03-17 10:03 | XMS_ITS | CCD ---
Author Organization [facility] [employer] Care Team Providers Care Mission Support Specialist Name Role Phone PHYSICIAN, DEFAULT Admitting Unavailable PHYSICIAN, DEFAULT Attending Unavailable Arsh Robert Unavailable Francine Dobson Unavailable Dandre Osborn Unavailable ANURAG, DR GONSALVES Primary Care Unavailable HAY ., DR HERNANDEZ Admitting Unavailable HAY ., DR HERNANDEZ Attending Unavailable HAY ., DR HERNANDEZ Consulting Unavailable ANURAG, DR GONSALVES Admitting Unavailable BALL, DR GONSALVES Attending Unavailable BALL, DR GONSALVES Primary Care Unavailable ANURAG, DR GONSALVES Consulting Unavailable FRANCESEBMIKE, DR REGAN Pardo Consulting Unavailable ANURAG, DR GONSALVES Admitting Unavailable BALL, DR GONSALVES Attending Unavailable BALL, DR GONSALVES Primary Care Unavailable BALL, DR GONSALVES Consulting Unavailable ZIEBMIKE, DR REGAN Pardo Consulting Unavailable ANURAG, DANDRE Primary Care Unavailable VENKATESH TAYLOR Admitting Unavailable VENKATESH TAYLOR Attending Unavailable SHANNAN COHEN Referring Unavailgiancarlo e ANURAG, DANDRE May Primary Care Unavailable MICHELLE AUGUSTIN Referring Unavailable ANURAG, DANDRE May Primary Care Unavailable NEGRITO, SHEA Referring Unavailable ANURAG, DANDRE May Primary Care Unavailable LINNEA GONZALES Referring Unavailable ANURAG, DANDRE May Primary Care Unavailable LINNEA GONZALES Referring Unavailable ANURAG, DANDRE E Primary Care Unavailable NEGRITO, SHEA Attending Unavailable ANURAG, DANDRE May Referring Unavailable BALL, DANDRE E Primary Care Unavailable BINEELA, SHEA Referring Unavailable BALL, DANDRE E Primary Care Unavailable BINEELA, SHEA Attending Unavailable ANURAG, DANDRE May Referring Unavailable ANURAG, DANDRE E Primary Care Unavailable BIESTUARDOI, SHEA Referring Unavailable BALL, DANDRE E Primary Care Unavailable LINNEA GONZALES Attending Unavailable ANURAG, DANDRE E Referring Unavailable BALL, DANDRE E Primary Care Unavailable MICHELLE AUGUSTIN Attending Unavailable ANURAG, DANDRE E Referring Unavailable ANURAG, DANDRE E Primary Care Unavailable LINNEA GONZALES Attending Unavailable BALL, DANDRE E Referring Unavailable BALL, DANDRE E Primary Care Unavailable LINNEA GONZALES Attending Unavailable DANDRE OSBORN Referring Unavailable DANDRE OSBORN Primary Care Unavailable Allergies Allergy Classification Reported Allergen(s) Allergy Type Date of Onset Reaction(s) Facility (1 source) patient allergy list reviewed by nurse or physicia Propensity to adverse reactions Comment:Done [facility] Other (1 source) Allergies Reconciled Propensity to adverse reactions Unknown [facility] Other Medications Current Medications Medication Drug Class(es) [...] Mar, Active meloxicam 15 mg oral tablet (11 sources) Nonsteroidal Anti-inflammatory Drug take 1 tablet by mouth once daily as needed Meloxicam 15 MG 1 tablet Orally Once a day as needed Active Completed/Discontinued Medications Medication Drug Class(es) Dates Sig (Normalized) Sig (Original) Airborne - (12 sources) Airborne - as di rected Orally Not-Taking Airborne - as di rected Orally Active Calcium (12 sources) Phosphate Binder, Calcium Calciu m 150 MG as directed Orally Not-Taking Calcium [...] without hemorrhage] Genitourinary symptoms and ill-defined conditions (4 sources) Mixed urinary incontinence; Translations: [Mixed incontinence] Chronic Genitourinary symptoms and ill-defined conditions (2 [...] osteoarthritis, unspecified hand] Onset: 01-23-2016 Resolved: 11-26-2019 Chronic Osteoporosis (2 sources) Primary osteoporosis; Translations: [...] metabolic disorders (2 sources) Overweight Episodic Other upper respiratory infections (2 sources) [...] [Other specified postprocedural states] Onset: 02-26-2024 Episodic Spondylosis; intervertebral disc disorders; other back [...] unspecified site] Onset: 01-27-2018 Resolved: 11-26-2019 Episodic Other and unspecified benign neoplasm (1 source) [...] adult] Onset: 01-23-2016 Resolved: 11-26-2019 Episodic Other screening for suspected conditions (not mental disorders or infectious disease) (9 sources) Encounter for screening mammogram for malignant neoplasm of breast; Translations: [Patient encounter status] Onset: 12-28-2022 Episodic Other upper respiratory disease (1 source) [...] Translations: [Rheumatoid arthritis, unspecified] Resolved: 11-26-2019 Chronic Screening and history of mental health and substance abuse codes (1 source) Encounter for screening for depression; Translations: [Encounter for screening for depression] Onset: 06-25-2024 Episodic Skin and subcutaneous tissue infections (2 sources) Cellulitis of left finger; Translations: [Carbuncle of neck] Onset: 02-08-2016 Resolved: 11-26-2019 Episodic Spondylosis; intervertebral disc disorders; other back problems (3 sources) Low back pain; Translations: [Lumbago] Onset: 11-15-2016 Resolved: 11-26-2019 Episodic Unclassified (2 sources) Other low back pain M54.59 Onset: 02-13-2022 Resolved: 03-29-2022 Results Test Name Value Interpretation Reference Range Facility MR ARTHROGRAM WRIST RT W CON Ton 07-23-2024 MR ARTHROGRAM WRIST RT W CONT MR ARTHROGRAM WRIST RT W CONT HISTORY AND/OR TECH NOTES Srinivas Loveos a 59 y.o. year old female [...] Sixto Jason MD on 07/23/2024 4:02 PM [facility] [place] MR/CT ARTHROGRAM WRIST RT W INJon 07-22-2024 [place] MR/CT ARTHROGRAM WRIST RT W INJ [place] MR/CT ARTHROGRAM WRIST RT W INJ Indication: Chronic right wrist pain. Consent: Informed consent was obtained from the alert and oriented patient. Patient understands procedure and all of her questions were answered. Timeout: [place] timeout verification procedure was performed. PROCEDURE: Spot [...] Pantoja MD on 07/22/2024 4:47 PM Normal [facility] Cytologyon 06-25-2024 Cytology Normal [facility] Comment on above: Result Comment: [email or web address] [facility] [address] [place] [address] Gynecologic Cytology Consultation Patient Name:ROSENDO AVILESB:1965 (Age: 59)Gender:FTaken:06/25/2024eported:07/18/2024hysician(s):Michelle Augustin, [facility] ([phone])Copy To: Rec. #:[id number]: #[id number] Final Cytologic Interpretation ThinPrep Pap Test (Cervical): Satisfactory for evaluation. NEGATIVE FOR INTRAEPITHELIAL LESION OR MALIGNANCY. The cytologic changes of atrophy are noted. tg/07/18/2024 Interpretation performed at [facility] [employer], [address] [place] [address], License number: [id number]. Electronically Signed Out By BRUNA Castillo (ASCP) Date of Last Menstrual Period: (None Given) Other Clinical Conditions: Menopausal Clinical History: POSTMENOPAUSAL Z01.419 Ground Nuclear Weapons Assembly Officer exam wo/abn findings Source of Specimen ThinPrep Pap Test (Cervical) Thin Prep Pap (INBOUND SALES MANAGER) Fee Code(s): G0145 The Pap test is a screening test with an inherent, but low, probability of error. The Pap test is primarily effective for the diagnosis and prevention of squamous cell carcinoma. Regular screening is critical for prevention. ThinPrep liquid-based slides, which meet the Turret Lathe Operator criteria for automated screening, have been screened by the ThinPrep Imaging System (as of 06/30/07) along with an additional manual rescreening by a warehouse operations associate and, if indicated, by a pathologist. HIGH RISK HPV W/GENOon 06-25 HPV 31+33+35+39+45+51+52 +56+58+59+66+68 DNA ORION+probe Ql (Cvx) HPV SPECIMEN TYPE ThinPrep HPV 16 Negative (qualifier value) HPV 18 Negative (qualifier value) OTHER HIGH RISK HPV Negative (qualifier value) HPV types 31,33,35,39,45,52,56 ,58,59,66 and 68 DNA were undetectable. Normal [facility] Comment on above: Performed By: #### 7 1431-1 #### [facility] ([id number]) [address] [facility] [place] [address] [facility] ([id number]) [address] [facility], [address] [place] [address] MR CERVICAL SPINE WO CONTon 05-22-2024 MR [...] Arora MD on 05/22/2024 7:40 AM Normal [facility] XR WRIST LT MIN 3 VWSon 08 XR WRIST LT MIN 3 VWS XR WRIST LT MIN 3 VWS XR WRIST LT MIN 3 VWS Clinical history:Left wrist pain Comparison: None. Findings: Radiocarpal, intercarpal and first carpometacarpal joint degenerative change. No acute process fracture dislocation. Osteopenia. Impression: Degenerative changes without acute process identified. Finalized by Jarred Nelson MD on 05/14/2024 12:58 PM Normal [facility] XR WRIST RT MIN 3 VWSon 08-0 [...] on 05/14/2024 1:01 PM Normal [facility] XR FOOT LEFT (MIN 3 VIEWS)on 02-27-2024 [...] Rebecca Arana MD 02/27/24 Final result Normal [facility] MG MAMM SCREEN 3D NHUNG CADon 12-28-2022 MG MAMM SCREEN 3D NHUNG CAD Patient: BRIDGER AVILES Exam Date: 12/28/2022 : 1965 Gender:F Ordering : DR DANDRE OSBORN D.O. Admission #: [id number] Family : Order #: [id number] CLICK HERE TO VIEW EXAM RADIOLOGY REPORT [...] with thyroid cancer at age 53. LOCATION: [facility] BREAST COMPOSITION: Scattered areas fibroglandular density. FINDINGS: [...] Allen M.D. 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 No significant degeneration seen. XR/XR wrist RT 2V IMPRESSION:Unremarka ble exam Impression dictated by: Teddy Long M.D.05/09/2022 5:03 PM Dictation Location: [place] [address] Transcribed By: [facility] 05/09/221702 Dictated By: Teddy Long DO 05/09/221701 Signed By: 05/09/221702 Normal [facility] XR wrist RT 2V [facility] [employer] Other XR wrist RT 2V [facility] [employer] Other XR wrist RT 2V [address] [facility] [place] [employer] Other [place]R [place] 2[place] [address] No rt [employer] Other XR wrist RT 2V XRay Report [employer] Other XR wrist RT 2V Signed [employer] Other XR wrist RT 2V Patient: Bridger Aviles MR#: [id number] [place] [employer] Other XR wrist RT 2V 8497 [employer] Other XR wrist RT 2V : 1965 Acct:[id number] [facility] Other XR wrist RT 2V Age/Sex: 57 / F ADM Date: 05/09/22 [facility] Other XR wrist RT 2V Loc: [facility] Room: Type: [facility] Other XR wrist RT 2V Attending Dr: Francine Dobson MD [employer] Other XR wrist RT 2V Copies to: Francine Dobson MD [facility] Other XR wrist RT 2V Ordering Provider: Francine Dobson MD [facility] Other XR wrist RT 2V Date of Service: 05/09/22 [facility] Other XR wrist RT 2V XR/XR wrist RT 2V: Right wrist pain [facility] Other XR wrist RT 2V 2 viewsRIGHT wrist plain film [facility] Other XR wrist RT 2V COMPARISON:None [facility] Other XR wrist RT 2V 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 No significant degeneration seen. [facility] Other XR wrist RT 2V XR/XR wrist RT 2V [facility] Other XR wrist RT 2V IMPRESSION:Unremarka ble exam [facility] Other XR wrist RT 2V Impression dictated by: Teddy Long M.D.05/09/2022 5:03 PM [facility] Other XR wrist RT 2V Dictation Location: [place] [address] [employer] Other XR wrist RT 2V Transcribed By: PWS 05/09/22 [facility] Other XR wrist RT 2V Dictated By: Teddy Long DO 05/09/22 [facility] Other XR wrist RT 2V Signed By: [employer] Other XR wrist RT 2V 05/09/22 [facility] [employer] Other CBC AUTO DIFFon 02-28-2022 BASO # 0.1 103/ul Normal 0.0-0.1 [facility] Comment on above: Performed By: #### C BC #### [facility] [address] [place] [address] Dr. Shirin Veras Basophils/100 WBC (Bld) 0.8 % Normal 0.2-2.0 [facility] Comment on above: Performed By: #### C BC #### [facility] [address] [place] [address] Dr. Shirin Veras EO # 0.1 103/ul Normal 0.0-0.7 [facility] Comment on above: Performed By: #### C BC #### [facility] [address] [place] [address] Dr. Shirin Veras Eosinophils/100 WBC (Bld) 1.9 % Normal 0.9-7.0 [facility] Comment on above: Performed By: #### C BC #### [facility] [address] [place] [address] Dr. Shirin Veras Erythrocyte distribution width (RBC) [Ratio] 11.8 % Normal 11.0-15.0 [facility] Comment on above: Performed By: #### C BC #### [facility] [address] [place] [address] Dr. Shirin Veras Hematocrit (Bld) [Volume fraction] 44.3 % Normal 36.0-48.0 [facility] Comment on above: Performed By: #### C BC #### [facility] [address] [place] [address] Dr. Shirin Veras Hemoglobin (Bld) [Mass/Vol] 15.3 g/dL Normal 12.0-16.0 [facility] Comment on above: Performed By: #### C BC #### [facility] [address] [place] [address] Dr. Shirin Veras IG # 0.03 10e3/ul Normal 0.00-0.03 [facility] Comment on above: Performed By: #### C BC #### [facility] [address] [place] [address] Dr. Shirin Veras IG % 0.5 % Normal 0.0-0.5 [facility] Comment on above: Performed By: #### C BC #### [facility] [address] [place] [address] Dr. Shirin Veras LYMPH # 2.6 103/ul Normal 1.2-3.8 [facility] Comment on above: Performed By: #### C BC #### [facility] [address] [place] [address] Dr. Shirin Veras Lymphocytes/100 WBC (Bld) 40.4 % Normal 20.5-60.0 [facility] Comment on above: Performed By: #### C BC #### [facility] [address] [place] [address] Dr. Shirin Veras MANUAL DIFF REQ NO Normal [facility] Comment on above: Performed By: #### C BC #### [facility] [address] [place] [address] Dr. Shirin Veras MCH (RBC) [Entitic mass] 32.6 pg Normal 26.7-34.0 [facility] Comment on above: Performed By: #### C BC #### [facility] [address] [place] [address] [address] Shirin Veras MCHC (RBC) [Mass/Vol] 34.5 g/dL Normal 29.9-35.2 [facility] Comment on above: Performed By: #### C BC #### [facility] [address] [place] [address] [address] Shirin Veras MCV (RBC) [Entitic vol] 94.5 fL Normal 81.0-99.0 [facility] Comment on above: Performed By: #### C BC #### [facility] [address] [place] [address] Dr. Shirin Veras MONO # 0.5 103/ul Normal 0.3-0.8 [facility] Comment on above: Performed By: #### C BC #### [facility] [address] [place] [address] Dr. Shirin Veras Monocytes/100 WBC (Bld) 8.1 % Normal 1.7-12.0 [facility] Comment on above: Performed By: #### C BC #### [facility] [address] [place] [address] Dr. Shirin Veras NEUT # 3.1 103/ul Normal 1.4-6.5 [facility] Comment on above: Performed By: #### C BC #### [facility] [address] [place] [address] Dr. Shirin Veras Neutrophils/100 WBC (Bld) 48.3 % Normal 43.0-75.0 [facility] Comment on above: Performed By: #### C BC #### [facility] [address] [place] [address] [address] Shirin Veras Platelet mean volume (Bld) [Entitic vol] 10.1 fL Normal 9.5-13.5 [facility] Comment on above: Performed By: #### C BC #### [facility] [address] [place] [address] [address] Shirin Veras PLT 224 103/ul Normal 150-450 [facility] Comment on above: Performed By: #### C BC #### [facility] [address] [place] [address] [address] Shirin Veras RBC 4.69 106/ul Normal 4.20-5.40 [facility] Comment on above: Performed By: #### C BC #### [facility] [address] [place] [address] [address] Shirin Veras WBC 6.4 103/ul Normal 4.0-11.0 [facility] Comment on above: Performed By: #### C BC #### [facility] [address] [place] [address] Dr. Shirin Veras GLYCOHEMOGLOBIN A1Con 2021 ADA RECOMMENDATION SEE BELOW Normal [facility] Comment on above: Result Comment: ADA RECOMMENDED LIMIT 4.0 - 6.0 ADA THERAPEUTIC TARGET < 7.0 ACTION SUGGESTED > 7.0 Performed By: #### A 1C #### [facility] [address] [place] [address] Dr. Shirin Veras Glucose [Mass/Vol] 114 mg/dL Normal [facility] Comment on above: Performed By: #### A 1C #### [facility] [address] [place] [address] Dr. Shirin Veras HbA1c (Bld) [Mass fraction] 5.6 % Normal 4.5-6.2 [facility] Comment on above: Performed By: #### A 1C #### [facility] [address] [place] [address] Dr. Shirin Veras LIPID PROFILEon 02-28-2022 CHOL-HDL RATIO NORM SEE BELOW Normal [facility] Comment on above: Result Comment: 3.3 - 4.4 LOW RISK 4.4 - 7.1 AVERAGE RISK 7.1 - 11.0 MODERATE RISK >11.0 HIGH RISK Performed By: #### T SH, CMP, LIPID #### [facility] [address] [place] [address] Dr. Shirin Veras Cholesterol [Mass/Vol] 254 mg/dL Critically high <=200 [facility] Comment on above: Performed By: #### T SH, CMP, LIPID #### [facility] [address] [place] [address] [address] Shirin Veras Cholesterol in HDL [Mass/Vol] 65 mg/dL Critically high 40-60 [facility] Comment on above: Performed By: #### T SH, CMP, LIPID #### [facility] [address] [place] [address] [address] Shirin Veras Cholesterol in LDL [Mass/Vol] 164.2 mg/dL Normal [facility] Comment on above: Performed By: #### T SH, CMP, LIPID #### [facility] [address] [place] [address] Dr. Shirin Veras Cholesterol.total/Ch olesterol in HDL [Mass ratio] 3.9 {ratio} Normal [facility] Comment on above: Performed By: #### T SH, CMP, LIPID #### [facility] [address] [place] [address] [address] Shirin Veras HDL NORMAL > or = 60 mg/dl - LOW CARDIOVASCULAR RISK <40 mg/dl - HIGH CARDIOVASCULAR RISK Normal [facility] Comment on above: Performed By: #### T SH, CMP, LIPID #### [facility] [address] [place] [address] Dr. Shirin Veras LDL CALC NORMAL SEE BELOW Normal [facility] Comment on above: Result Comment: <100 mg/dl OPTIMAL 100 - 129 mg/dl NEAR OR ABOVE OPTIMAL 130 - 159 mg/dl BORDERLINE HIGH 160 - 189 mg/dl HIGH >190 mg/dl VERY HIGH Performed By: #### T SH, CMP, LIPID #### [facility] [address] [place] [address] [address] Shirin Veras Triglyceride [Mass/Vol] 124 mg/dL Normal <=150 [facility] Comment on above: Performed By: #### T SH, CMP, LIPID #### [facility] [address] [place] [address] [address] Shirin Veras VLDL CALC 24.8 mg/dL Normal [facility] Comment on above: Performed By: #### T SH, CMP, LIPID #### [facility] [address] [place] [address] [address] Shirin Veras PROF 14(COMP METB)on 022 Albumin [Mass/Vol] 4.1 g/dL Normal 3.4-5.0 [facility] Comment on above: Performed By: #### T SH, CMP, LIPID #### [facility] [address] [place] [address] [address] Shirin Veras Albumin/Globulin [Mass ratio] 1.2 {ratio} Normal [facility] Comment on above: Performed By: #### T SH, CMP, LIPID #### [facility] [address] [place] [address] [address] Shirin Veras ALP [Catalytic activity/Vol] 79 U/L Normal 46-116 [facility] Comment on above: Performed By: #### T SH, CMP, LIPID #### [facility] [address] [place] [address] [address] Shirin Veras ALT [Catalytic activity/Vol] 30 U/L Normal 14-59 [facility] Comment on above: Performed By: #### T SH, CMP, LIPID #### [facility] [address] [place] [address] [address] Shirin Veras Anion gap [Moles/Vol] 11.4 mmol/L Normal [facility] Comment on above: Performed By: #### T SH, CMP, LIPID #### [facility] [address] [place] [address] [address] Shirin Veras AST [Catalytic activity/Vol] 22 U/L Normal 15-37 [facility] Comment on above: Performed By: #### T SH, CMP, LIPID #### [facility] [address] [place] [address] [address] Shirin Veras Bilirubin [Mass/Vol] 0.5 mg/dL Normal 0.2-1.0 [facility] Comment on above: Performed By: #### T SH, CMP, LIPID #### [facility] [address] [place] [address] [address] Shirin Veras Calcium [Mass/Vol] 8.8 mg/dL Normal 8.5-10.1 [facility] Comment on above: Performed By: #### T SH, CMP, LIPID #### [facility] [address] [place] [address] Dr. Shirin Veras Chloride [Moles/Vol] 102 mmol/L Normal 98-107 [facility] Comment on above: Performed By: #### T SH, CMP, LIPID #### [facility] [address] [place] [address] Dr. Shirin Veras CO2 [Moles/Vol] 29.5 mmol/L Normal 21.0-32.0 [facility] Comment on above: Performed By: #### T SH, CMP, LIPID #### [facility] [address] [place] [address] Dr. Shirin Veras Creatinine [Mass/Vol] 0.69 mg/dL Normal 0.55-1.02 [facility] Comment on above: Performed By: #### T SH, CMP, LIPID #### [facility] [address] [place] [address] Dr. Shirin Veras EGFR-AF COMORAN >60 Normal >=60 [facility] Comment on above: Performed By: #### T SH, CMP, LIPID #### [facility] [address] [place] [address] Dr. Shirin Veras EGFR-NON AF COMORAN >60 Normal >=60 [facility] Comment on above: Performed By: #### T SH, CMP, LIPID #### [facility] [address] [place] [address] Dr. Shirin Veras Globulin (S) [Mass/Vol] 3.3 g/dL Normal [facility] Comment on above: Performed By: #### T SH, CMP, LIPID #### [facility] [address] [place] [address] Dr. Shirin Veras Glucose [Mass/Vol] 90 mg/dL Normal 74-106 [facility] Comment on above: Performed By: #### T SH, CMP, LIPID #### [facility] [address] [place] [address] Dr. Shirin Veras Potassium [Moles/Vol] 3.9 mmol/L Normal 3.5-5.1 [facility] Comment on above: Performed By: #### T SH, CMP, LIPID #### [facility] [address] [place] [address] Dr. Shirin Veras Protein [Mass/Vol] 7.4 g/dL Normal 6.4-8.2 [facility] Comment on above: Performed By: #### T SH, CMP, LIPID #### [facility] [address] [place] [address] Dr. Shirin Veras Sodium [Moles/Vol] 139 mmol/L Normal 136-145 [facility] Comment on above: Performed By: #### T MATT CMP, LIPID #### [facility] [address] [place] [address] Dr. Shiirn Veras Urea nitrogen [Mass/Vol] 16.0 mg/dL Normal 7.0-18.0 [facility] Comment on above: Performed By: #### T MATT CMP, LIPID #### [facility] [address] [place] [address] Dr. Shirin Veras Urea nitrogen/Creatinine [Mass ratio] 23.2 mg/mg Normal [facility] Comment on above: Performed By: #### T MATT CMP, LIPID #### [facility] [address] [place] [address] Dr. Shirin Veras TSHon 02-28-2022 TSH 1.145 uIU/mL Normal 0.358-3.740 [facility] Comment on above: Performed By: #### T MATT, CMP, LIPID #### [facility] [address] [place] [address] Dr. Shirin Veras TSH RANGE SEE BELOW Normal [facility] Comment on above: Result Comment: <0.3 4 UIU/ml HYPERTHYROID 0.34-5.60 UIU/ml EUTHYROID >5.60 UIU/ml HYPOTHYROID Performed By: #### T SH, CMP, LIPID #### [facility] [address] [place] [address] Dr. Shirin Veras UA RANDOM W/MICROSCOPICon 05 -18-2022 BACTERIA TRACE Abnormal NONE SEEN [facility] Comment on above: Performed By: #### U AMIC #### [facility] [address] [address] [address] Shirin Veras Bilirubin Ql (U) Negative Normal NEGATIVE The [facility] Comment on above: Performed By: #### U AMIC #### [facility] [address] [place] [address] Dr. Shirin Veras CAST NONE SEEN Normal NONE SEEN [facility] Comment on above: Performed By: #### U AMIC #### [facility] [address] [address] [address] Shirin Veras Clarity (U) CLEAR Normal CLEAR [facility] Comment on above: Performed By: #### U AMIC #### [facility] [address] [place] [address] Dr. Shirin Veras Color (U) LT. YELLOW Normal YELLOW [facility] Comment on above: Performed By: #### U AMIC #### [facility] [address] [address] [address] Shirin Veras Crystals LM Nom (Urine sed) NONE SEEN Normal NONE SEEN [facility] Comment on above: Performed By: #### U AMIC #### [facility] [address] [place] [address] Dr. Shirin Veras Epithelial cells LM Ql (Urine sed) RARE Normal NONE SEEN /RARE [facility] Comment on above: Performed By: #### U AMIC #### [facility] [address] [place] [address] Dr. Shirin Veras Glucose Ql (U) Negative Normal NEGATIVE The [facility] Comment on above: Performed By: #### U AMIC #### [facility] [address] [address] [address] Shirin Veras Hemoglobin Ql (U) Negative Normal NEGATIVE [facility] Comment on above: Performed By: #### U AMIC #### [facility] [address] [place] [address] Dr. Shirin Veras Ketones Ql (U) Negative Normal NEGATIVE [facility] Comment on above: Performed By: #### U AMIC #### [facility] [address] [address] [address] Shirin Veras LEUKOCYTES TRACE Abnormal NEGATIVE [facility] Comment on above: Performed By: #### U AMIC #### [facility] [address] [address] [address] Shirin Veras MUCOUS TRACE Abnormal NONE SEEN [facility] Comment on above: Performed By: #### U AMIC #### [facility] [address] [address] [address] Shirin Veras Nitrite Ql (U) Negative Normal NEGATIVE The [facility] Comment on above: Performed By: #### U AMIC #### [facility] [address] [address] [address] Shirin Veras pH (U) 6.0 [pH] Normal 5-9 [facility] Comment on above: Performed By: #### U AMIC #### [facility] [address] [address] [address] Shirin Veras RBC 0-2 Normal 0-2 [facility] Comment on above: Performed By: #### U AMIC #### [facility] [address] [address] [address] Shirin Veras SPEC GRAVITY 1.025 Normal 1.005-<=1.025 The [facility] Comment on above: Performed By: #### U AMIC #### [facility] [address] [address] [address] Shirin Veras UA PROTEIN Negative Normal NEGATIVE/ TRACE [facility] Comment on above: Performed By: #### U AMIC #### [facility] [address] [address] [address] Shirin Veras Urobilinogen Qn (U) 0.2 {Laurie'U}/dL Normal 0.2 - 1. 0 [facility] Comment on above: Performed By: #### U AMIC #### [facility] [address] [address] [address] Shirin Veras WBC 2-5 Abnormal NONE SEEN [facility] Comment on above: Performed By: #### U AMIC #### [facility] [address] [place], [place] [address] Dr. Shirin Veras US THYROIDon 02-28-2022 US [...] one year is recommended. TR 3: The [employer] TI-RADS committee's white paper recommendations for thyroid lesions classified as TR3 (mildly suspicious) are listed below: > 1.5 cm. Follow-up ultrasound in 1, 3, and 5 years. > 2.5 cm. FNA. J. Am Graciela Radiol 2017;14:587-595. TR 2: TI-RADS 2: Benign nodules. Noticeably benign pattern (0% risk of malignancy) Electronically authenticated by: REGAN ALLEN Date: 2022-02-28 10:09 Normal [facility] VITAMIN D 25 OHon 02-28-2022 VIT D 25-OH 41.6 ng/mL Normal [facility] Comment on above: Performed By: #### V ITAD #### [facility] [address] [place], [place] [address] Dr. Shirin Veras VIT D RANGES SEE BELOW Normal [facility] Comment on above: Result Comment: <20 ng/mL Vit D deficient 20 - <30 ng/mL Vit D insufficient 30 - 100 ng/mL Vit D sufficient >100 ng/mL Potential Toxicity Performed By: #### V ITAD #### [facility] [address] [place], [place] [address] Dr. Shirin Veras XR hip LT min 2V(w/wo pelvis )*on 09-19-2021 XR hip LT min 2V(w/wo pelvis)* [facility] [place] [address] [place] [id number] XRay Report Signed Patient: Bridger Aviles MR#: [id number] : 1965 Acct:[id number] Age/Sex: 56 / F ADM Date: 09/19/21 Loc: [facility] Room: Type: [facility] CLI Attending Dr: Arsh Robert MD Ordering Provider: [...] acute bony abnormality. Impression dictated by: Curtis Holland Jr., M.D.09/19/2021 7:03 PM Dictation Location: [place] [address] Transcribed By: [facility] 09/19/211902 Dictated By: Curtis Holland Jr, MD 09/19/211901 Signed By: 09/19/211902 [facility] Vital Signs Date Time Vital Sign Value Performing Clinician Facility 04-08-2023 11:30-0400 Body height 157.48 cm [facility] Other 04-08-2023 11:30-0400 Body mass index (BMI) [Ratio] 28.71 kg/m2 [facility] Other 04-08-2023 11:30-0400 Body weight 71.22 kg [facility] Other 04-08-2023 11:30-0400 Diastolic blood pressure 81 mm[Hg] [facility] Other 04-08-2023 11:30-0400 Respiratory rate 12 /min Dandre Osborn Other [facility] Other 04-08-2023 11:30-0400 Systolic blood pressure 131 mm[Hg] Dandre Osborn Other [facility] Other 05-09-2022 16:00-0400 Body height 157.48 cm Francine Dobson Other [facility] Other 05-09-2022 16:00-0400 Body mass index (BMI) [Ratio] 28.53 kg/m2 Francine Dobson Other [facility] Other 05-09-2022 16:00-0400 Body weight 70.76 kg Francine Dobson Other [facility] Other 02-13-2022 16:15-0400 Body height 157.48 cm Arsh Robert Other [facility] Other 02-13-2022 16:15-0400 Body mass index (BMI) [Ratio] 28.53 kg/m2 Arsh Robert Other [facility] Other 02-13-2022 16:15-0400 Body weight 70.76 kg Arsh Robert Other [facility] Other Encounters Encounter Date Encounter Type Care Provider Facility Start: 11-27-2024 End: 11-27-2024 ambulatory [facility] Start: 08-05-2024 End: 08-05-2024 ambulatory [facility] Start: 07-22-2024 End: 07-22-2024 ambulatory [facility] Start: 06-25-2024 End: 06-25-[address] [facility] Start: 06-25-2024 Encounter for gynecological examination (general) (routine) without abnormal findings [facility] Start: 06-25-2024 End: 06-25-2024 ambulatory MICHELLE M [facility] Start: 06-25-2024 Encounter for gynecological examination (general) (routine) without abnormal findings [facility] Start: 06-11-2024 End: 06-11-2024 ambulatory [facility] Start: 05-20-2024 End: 05-20-[address] [facility] Start: 05-13-2024 End: 05-13-2024 [facility] Start: 03-17-2024 End: 03-17-2024 ambulatory [facility] Start: 02-26-2024 End: 02-26-2024 ambulatory DANDRE OSBORN [facility] Start: 01-31-2024 End: 01-31-2024 ambulatory [facility] Start: 05-13-2023 End: 05-13-2023 ambulatory Dandre Osborn Other [facility] Other Start: 05-13-2023 Telephone encounter [facility] Start: 04-11-2023 End: 04-11-2023 ambulatory Dandre Osborn Other [facility] Other Start: 04-11-2023 Telephone encounter [facility] Start: 04-08-2023 End: 04-08-2023 ambulatory Dandre Osborn Other [facility] Other Start: 04-08-2023 Encounter for genera l adult medical examination without abnormal findings Dandre Osborn [facility] Start: 04-08-2023 Periodic preventive med est patient 40-64yrs Dandre Osborn [facility] Start: 12-28-2022 End: 12-29-[address] DANDRE OSBORN Facility: Start: 10-13-2022 End: 10-13-[address] DANDRE OSBORN Facility:[facility] Start: 10-12-2022 End: 10-12-2022 ambulatory Dandre Osborn Other [facility] Other Start: 10-12-2022 Telephone encounter [facility] Start: 08-03-2022 End: 08-03-2022 ambulatory Francine Souzasergio Other [facility] Other Start: 08-03-2022 Office outpatient vi sit 15 minutes Francine Calvey [facility] Start: 07-10-2022 Gynecological examination normal Dandre Osborn Other [facility] Other Start: 05-09-2022 End: 05-09-2022 ambulatory Francine Dobson Other [facility] Other Start: 05-09-2022 Office outpatient ne w 30 minutes Francine Calvey [facility] Start: 03-29-2022 End: 03-29-2022 ambulatory Arsh Robert Other [facility] Other Start: 03-29-2022 Office outpatient vi sit 15 minutes Arsh Robert [facility] [place] Start: 03-21-2022 (Procedure) Short Arsh Robert [facility] Start: 03-21-2022 End: 03-21-2022 ambulatory Arsh Robert Other [facility] Other Start: 03-14-2022 End: 03-14-2022 ambulatory Arsh Robert Other [facility] Other Start: 03-14-2022 Telephone encounter Arsh Robert [facility] Start: 03-06-2022 Encounter for genera l adult medical examination without abnormal findings DR DANDRE OSBORN [facility] Start: 02-28-2022 End: 03-01-[address] DANDRE OSBORN Facility:[facility] Start: 02-28-2022 End: 03-01-2022 Encounter for general adult medical examination without abnormal findings DR DANDRE OSBORN Facility: Start: 02-21-2022 End: 02-21-2022 ambulatory Arsh Robert Other [facility] Other Start: 02-21-2022 Telephone encounter [facility] Start: 02-16-2022 Adult health examination Walter Osborn Other [facility] Other Start: 02-13-2022 End: 02-13-2022 ambulatory Arsh Robert Other [facility] Other Start: 02-13-2022 Office outpatient vi sit 15 minutes Arsh Robert [facility] [place] Start: 10-19-2021 Gynecological examination abnormal Dandre Anurag Other [facility] Other Start: 10-16-2021 End: 10-16-2021 ambulatory Arsh Robert Other [facility] Other Start: 10-16-2021 Telephone encounter [facility] Start: 12-11-2018 End: 12-12-2018 Patient encounter procedure DEFAULT PHYSICIAN Facility:[facility] Procedures Date Procedure Procedure Detail Performing Clinician Start: 03-17-2024 Follow-up visit Follow-up SHEA LEAL Start: 01-25-2021 End: 07-12-2022 Depression screening Dandre [facility]born Other Start: 01-12-2019 End: 11-26-2019 General examination of patient Dandre Osborn Other Screening for malign ant neoplasm of breast Dandre [facility]born Other Immunizations Immunization Date Immunization Notes Care Provider Demetrius beard 05-10-2022 COVID-19 Pfizer Dandre robbins Other [facility] Other 10-04-2021 COVID-19 Vaccine Pfi zer - Documentation Purposes Only Dandre Anurag Other [facility] Other 01-17-2021 COVID-19 Vaccine Pfi zer - Documentation Purposes Only Dandre Osborn Other [facility] Other 12-26-2020 COVID-19 Vaccine Pfi zer - Documentation Purposes Only Dandre Osborn Other [facility] Other Payers Date Payer Category Payer Medicare [id number] 1965 Unknown [id number] 2.16.8 [id number] 1965 Unknown [id number] 2.16.84 0.1.219236.3.579.2.593 1965 Unknown [id number] 2.16.84 0.1.218728.3.579.2.593 1965 Unknown [id number] 2.16.84 0.1.290755.3.579.2.593 1965 Unknown [id number] 2.16.8 40.1.617639.3.579.2.177 1965 Unknown [id number] 2.16.8 40.1.626643.3.579.2.1286 1965 Unknown [id number] 2.16.8 40.1.883121.3.579.2.1286 1965 Unknown [id number] 2.16.8 40.1.241850.3.579.2.1286 1965 Unknown [id number] 2.16.8 40.1.555201.3.579.2.1286 1965 Unknown [id number] 2.16.8 40.1.026033.3.579.2.1286 1963 Unknown [id number] 2.16.8 40.1.598777.3.579.2.1286 1963 Unknown [id number] 2.16. 840.1.544009.3.579.2.1286 1965 Unknown [id number] 2.16.8 40.1.524580.3.579.2.6 1965 Unknown [id number] 2.16.8 40.1.423491.3.579.2.1286 1963 Unknown [id number] 2.16.8 40.1.784126.3.579.2.1285 1965 Unknown [id number] 2.16.8 40.1.826388.3.579.2.1286 1963 Unknown [id number] 2.16.8 40.1.079979.3.579.2.1285 1965 Unknown [id number] 2.16.8 40.1.024759.3.579.2.1286 1965 Unknown [id number] 2.16.8 40.1.244014.3.579.2.1286 1961 [facility] [id number] 2.16.840.1.155796.19 1961 Unknown [id number] 2.16. 840.1.965015.19 Unknown Social History Date Type Detail Facility Sex Assigned At [facility] Other Evaluation note 04-11-2023 Note Date & Type Note Facility 04-11-2023 Evaluation note Encounter Date Diagnosis Assessment Notes Mar, Overweight (ICD-10 - E66.3) [facility] Other Evaluation note 04-08-2023 Note Date & Type Note Facility 04-08-2023 Evaluation note Encounter Date Diagnosis Assessment Notes Mar, Wellness examination (ICD-10 - Z00.00) Mar, Lumbar spondylosis (ICD-10 - M47.816) The patient is instructed to avoid bending, twisting or lifting. They are to use intermittent heat and ice as needed. They may schedule a massage or gentle manipulation. They may safely use Tylenol as needed. Mar, Thyroid nodule (ICD-10 - E04.1) US: 5mm right, 8mm left, TR 2 - 02/2022 f/u Endocrine OV earlier this [...] mammogram for breast cancer (ICD-10 - Z12.31) [facility] Other Evaluation note 08-03-2022 Note Date & Type Note Facility 08-03-2022 Evaluation note Encounter Date Diagnosis Assessment Notes Jul, De Quervain's tenosynovitis, right (ICD-10 - M65.4) Xrays and physical exam was reviewed/pref ormed today, we did discuss her treament options today which include medication steriods and a injection. Patient will proceed with an inejction today. We performed a 0.5/0.5cc marcaine / kenalog cortisone injection into the wrist joint under sterile technique. Patient tolerated the injection well without adverse reaction. Jul, FCU (flexor carpi ulnaris) tenosynovitis (ICD-10 - M65.9) Jul, Right wrist pain (ICD-10 - M25.531) [facility] Other Evaluation note 05-09-2022 Note Date & Type Note Facility 05-09-2022 Evaluation note Encounter Date Diagnosis Assessment Notes Apr, De Quervain's tenosynovitis, right (ICD-10 - M65.4) Occupational therapy ordered and patient instructed on the use of Voltaren Gel Apr, FCU (flexor carpi ulnaris) tenosynovitis (ICD-10 - M65.9) Apr, Right wrist pain (ICD-10 - M25.531) [facility] Other Evaluation note 03-29-2022 Note Date & Type Note Facility 03-29-2022 Evaluation note Encounter Date Diagnosis Assessment Notes Mar, Other low back pain (ICD-10 [...] (ICD-10 - G89.29) Mar, Other Above note written by Jeffrey Bean LPN, Day Care Supervisor. Edited and approved by Dr. Arsh Robert MD. [facility] Other Evaluation note 02-13-2022 Note Date & Type Note Facility 02-13-2022 Evaluation note Encounter Date Diagnosis Assessment Notes February, Other low back pain (ICD-10 [...] at this time she notes the stephen [id number] is too much for her, we discussed [...] (ICD-10 - G89.29) February, Other Above note written by Jeffrey Bean LPN, Day Care Supervisor. Edited and approved by Dr. Arsh Robert MD. [facility] Other Evaluation note Note Date & Type Note Facility Evaluation note No Information [employer] Other History general Narrative - Reported Note Date & Type Note Facility History general Narrative - Reported Type Medical History back pain Medical History Arthritis Medical History joint problems Medical History muscle spasm Medical History nodules,skin Medical History degenerative joint disease Medical History Radial styloid tenosynovitis Surgical History bone spur removal Surgical History tubal ligation Hospitalization History see above surgical histo ry [facility] Other History general Narrative - Reported Note Date & Type Note Facility History general Narrative - Reported Type Medical History back pain Medical History Arthritis Medical History joint problems Medical History muscle spasm Medical History nodules,skin Medical History degenerative joint disease Medical History Radial styloid tenosynovitis Medical History Closed head injury w ith concussion, without loss of consciousness, initial encounter Medical History Whiplash injury to n nidia, initial encounter Medical History New daily persistent headache Medical History Thyroid nodule Medical History Gastroesophageal ref lux disease with esophagitis without hemorrhage Medical History Cervical spondylosis Medical History Urge and stress incontinence Medical History Cystocele, midline Surgical History bone spur removal Surgical History tubal ligation Surgical History THYROID FNA 2020 Surgical History COLONOSCOPY Hospitalization History see above surgical histo [employer] Other History general Narrative - Reported Note Date & Type Note Facility History general Narrative - Reported Type Medical History back pain Medical History Arthritis Medical History joint problems Medical History muscle spasm Medical History nodules,skin Medical History degenerative joint disease Medical History Radial styloid tenosynovitis Medical History Closed head injury w ith concussion, without loss of consciousness, initial encounter Medical History Whiplash injury to n nidia, initial encounter Medical History New daily persistent headache Medical History Thyroid nodule Medical History Gastroesophageal ref lux disease with esophagitis without hemorrhage Medical History Cervical spondylosis Medical History Urge and stress incontinence Medical History Cystocele, midline Surgical History bone spur removal Surgical History tubal ligation Surgical History THYROID FNA 2019 Surgical History COLONOSCOPY 2018 Hospitalization History see above surgical histo ry [facility] Other Summary Purpose Family History No Family History [...] section and content) DATE CREATED AUTHOR 12/12/2018 [facility] DATE CREATED AUTHOR AUTHOR'S ORGANIZ ATION 05/17/2022 [facility] DATE CREATED AUTHOR AUTHOR'S ORGANIZ ATION 01/06/2023 [facility] DATE CREATED AUTHOR AUTHOR'S ORGANIZ ATION 02/28/2024 [facility] DATE CREATED AUTHOR AUTHOR'S ORGANIZ ATION 07/20/2024 [facility] DATE CREATED AUTHOR AUTHOR'S ORGANIZ ATION 07/24/2024 [facility] DATE CREATED AUTHOR AUTHOR'S ORGANIZ ATION 11/29/2024 [facility] REASON FOR VISIT (unrecogniz ed section and content) Rectal BleedingLab Resultsge neral check upVirtual Appointment?Recheck Right WristRight Wrist PainFOLLOW UP AFTER LEFT SI JOINT INJLT SACROILIAC JOINT INJ /CJFOODPROCEDURELT SI JOINT IS HAVING MORE PAIN FOR RECORDS PERTAINING TO PATIENTS WHO ARE [...] BE BASED ON THE PRIMARY CLINICAL RECORDS. [employer] provides no warranty or guarantee of the accuracy or completeness of information in this document.
== END 2025-03-17 09:45 | disposition home or self-care (01) ==
LOC: LAB 09:47
PROVIDERS: PCP Internal Medicine; Visit Provider Internal Medicine Rheumatology
DX: E55.9 Vitamin D deficiency, unspecified (principal)
CPT/HCPCS: 36415; 82306

== ENCOUNTER 2025-03-17 09:56 | Outpatient (OUT) | payer MEDICARE, SELFPAY ==
--- OUTSIDE RECORDS SUMMARY | 2025-03-17 10:01 | XMS_ITS | Encounter Summary ---
Author Organization [employer] [facility] Address [id number] [address] [place] [address] Care Team Providers Care Gynecology Teacher Name Role Phone Dandre Osborn DO Primary Care Provider [phone] Reason for Referral * Diagnostic Imaging (Routine) - Closed Specialty Diagnoses / Procedures Referred By Contac t Referred To Contact Radiology Diagnoses Cervicalgia Procedures MR cervical spine without contrast Teo Pickett MD [address] [facility], [address] [address] Phone: tel: fax: [place] [address] [facility] [address] Phone: tel: Referral ID Status Reason Start Date Expiration Date Visits Re quested Visits Authorized [id number] Closed 05/06/2024 05/06/2025 1 1 Encounter Details Date Type Department Care Team (Late st Contact Info) Description 05/06/[address] [facility] [address] [facility] [place] [id number] Cee Lemus LPN Cervicalgia (Primary Dx) Social History Tobacco Use Types Packs/Day Years Used Date Smoking Tobacco: Never Smokeless Tobacco: Never Childcare Answer Date Recorded Childcare Unknown 03/25/2019 Employment Answer Date Recorded Employment Unknown 03/25/2019 Hunger Screening Answer Date Recorded Within the past 12 months we worried whether our food would run out before we got money to buy more. Never True 03/17/2024 Within the past 12 months th e food we bought just didn't last and we didn't have money to get more. Never True 03/17/2024 Purpose - Life Answer Date Recorded Purpose and direction in life Unknown Comments Unknown Sex and Gender Information Value Date Recorded Sex Assigned at Not on file Legal Sex Female 11:26 AM EDT Gender Identity Not on file Sexual Orientation Not on file documented as of this encounter Plan of Treatment Not on file documented as of this encounter Results * MR cervical spine without contrast (05/20/2024 12:43 PM EDT) Anatomical Region Laterality Modality C-spine, Spine, Spine Covera N/A Mag netic Resonance 05/22/2024 7:34 AM EDT Narrative 05/22/2024 7:40 AM EDT Study: Cervical spine MRI without contrast. History: [...] Taco Arora MD on 05/22/2024 7:40 AM Procedure Note Taco Arora MD - 05/22/2024 Study: Cervical spine MRI without contrast. History: Chronic neck pain Comparison: November 28, 2007 Technique: Routine multiplanar multisequence MR imaging of the cervicalspine was performed without contrast. Findings: C2-3 unremarkable Minimal disc bulging C3-4 without stenosis and unchanged C4-5 shows minimal posterior disc bulging without stenosis C5-6 shows moderate posterior disc osteophyte complex and facethypertrophy unchanged with currently mild central canal stenosis and mildbilateral foraminal narrowing C6-7 shows mild posterior disc bulging without stenosis C7-T1 appropriate Appropriate signal within the vertebra setting for some mild discogenicsignal at C5-6 Appropriate signal within posterior elements and cervical cord IMPRESSION: Multilevel disc disease and facet arthropathy with only mild central canalstenosis and mild bilateral foraminal narrowing C5-6, without acutechange Finalized by Taco Arora MD on 05/22/2024 7:40 AM us Teo Pickett MD IMG MRI ORDERABLES Final Result documented in this encounter Visit Diagnoses Diagnosis Cervicalgia- Primary Cervicalgia documented in this encounter Care Teams Gynecology Teacher Relationship Specialty Start Date End Date Dandre Osborn DO [address] [place] [address] PCP - General 12/16/17 documented as of this encounter
--- OUTSIDE RECORDS SUMMARY | 2025-03-17 10:01 | XMS_ITS | Clinical Summary ---
Author Organization [facility] Address [address] [place] [address] Care Team Providers Care Tipple Oiler Name Role Phone Unavailable Primary Care Provider Unavailabl e Social History Tobacco Use Types Packs/Day Years Used Date Smoking Tobacco: Never Assessed Comments Unknown Sex and Gender Information Value Date Recorded Sex Assigned at Not on file Legal Sex Female 8:00 PM EDT Gender Identity Not on file Sexual Orientation Not on file Last Filed Vital Signs Vital Sign Reading Time Taken Comments Blood Pressure - - Pulse - - Temperature - - Respiratory Rate - - Oxygen Saturation - - Inhaled Oxygen Concentration - - Weight 70.3 kg (155 lb) 10/26/2021 12:00 PM EST Height 160 cm (5' 3 ) 10/26/2021 12:00 PM EST Body Mass Index 27.46 10/26/2021 12:00 PM EST Plan of Treatment Not on file
--- OUTSIDE RECORDS SUMMARY | 2025-03-17 10:01 | XMS_ITS | Patient Health Record ---
Author Organization [facility] [place] Address [address] [place] [address] Care Team Providers Care Plaster Model And Mold Maker Name Role Phone Anurag Dandre CHERY Primary Care Provider Unavaila ble Reason For Referral No Information Medications Medication SIG (Take, Route, Fr equency, Duration) Notes Start Date End Date Status Calcium Active Myrbetriq 50 MG 1 tablet Orally Once a day for 30 days 07/08/2019 Active Social History Tobacco Use: Social History Observation Description Date Details (start date - stop date) Never Smoker NA - NA Tobacco Use/Smoking Question Answer Notes Patient is a nonsmoker Alcohol Screen (Audit-C) Question Answer Notes Did you have a drink containing alcohol in the p ast year? Yes Points 0 Interpretation Negative Problems Problem Type SNOMED Code ICD Code Onset Dates Problem Status W/U Status Risk Notes Problem [id number] Mixed urge and stress incontinence (N39.46) Active confirmed Problem [id number] Atrophic vaginitis (N95.2) Active confirmed Plan Of Treatment No Information Insurance Providers Payer Name Payer Address Payer Phone Subscriber Number Group Number Insured Name Patient Relationship to Insured Coverage Start Date Coverage End Date [employer] [address] [address] [place], [place] [id number] [place] Self - patient is the insured 9 Medical (General) History Medical History History ICD Code arthritis Family history of breast cancer in [place] Z80.3 Surgical History Surgery Date(Month/Year) Bone Spur on Shoulder removed Bone Spur on Heel removed Tubal Ligation
--- OUTSIDE RECORDS SUMMARY | 2025-03-17 10:01 | XMS_ITS | Referral Summary ---
Author Organization [facility] Address [address] [place] [address] Care Team Providers Care Sales Service Coordinator Name Role Phone Unavailable Primary Care Provider Unavailabl e Social History Tobacco Use Types Packs/Day Years Used Date Smoking Tobacco: Never Assessed Sex and Gender Information Value Date Recorded Sex Assigned at Not on file Gender Identity Not on file Sexual Orientation Not on file Plan of Treatment Not on file
--- OUTSIDE RECORDS SUMMARY | 2025-03-17 10:01 | XMS_ITS | Clinical Summary ---
Author Organization [facility] Address [address] [place] [address] Care Team Providers Care Customer Agent Name Role Phone Unavailable Primary Care Provider Unavailabl e Social History Tobacco Use Types Packs/Day Years Used Date Smoking Tobacco: Never Assessed Sex and Gender Information Value Date Recorded Sex Assigned at Not on file Gender Identity Not on file Sexual Orientation Not on file Plan of Treatment Not on file
--- OUTSIDE RECORDS SUMMARY | 2025-03-17 10:01 | XMS_ITS | Clinical Summary ---
Author Organization [email or web address] [facility] Address [id number] [address] [place] [address] Care Team Providers Care Tabular Typist Name Role Phone Anurag Dandre Yadira CHERY Primary Care Provider [phone] Allergies No known active allergies Medications meloxicam (MOBIC) 15 mg tablet TAKE 1 TABLET BY MOUTH EVERY DAY NEEDED FOR ARTHRITIS FLARE Active Active Problems Problem Noted Date Diagnosed Date Mixed urge and stress incontinence 06/25/2024 Family History Medical History Relation Name Comments Heart attack Father Breast cancer Mother Diabetes Mother High Cholesterol Son Relation Name Status Comments Father Mother Son Alive Social History Tobacco Use Types Packs/Day Years Used Date Smoking Tobacco: Never Smokeless Tobacco: Never Tobacco Cessation:Counseling Given: Not Answered Alcohol Use Standard Drinks/Week Comments Yes 0 (1 standard drink = 0.6 oz pur e alcohol) occasional PHQ-2 Answer Date Recorded Total Score 0 06/25/2024 Childcare Answer Date Recorded Childcare Unknown 03/25/2019 Employment Answer Date Recorded Employment Unknown 03/25/2019 Hunger Screening Answer Date Recorded Within the past 12 months we worried whether our food would run out before we got money to buy more. Never True 11/27/2024 Within the past 12 months th e food we bought just didn't last and we didn't have money to get more. Never True 11/27/2024 Purpose - Life Answer Date Recorded Purpose and direction in life Unknown Comments No Sex and Gender Information Value Date Recorded Sex Assigned at Not on file Legal Sex Female 11:26 AM EDT Gender Identity Not on file Sexual Orientation Not on file Last Filed Vital Signs Vital Sign Reading Time Taken Comments Blood Pressure 128/82 06/25/2024 10:00 AM EDT Pulse - - Temperature - - Respiratory Rate - - Oxygen Saturation - - Inhaled Oxygen Concentration - - Weight 65.3 kg (144 lb) 11/27/2024 9:18 AM EST Height 157.5 cm (5' 2 ) 11/27/2024 9:18 AM EST Body Mass Index 26.34 11/27/2024 9:18 AM EST Plan of Treatment Health Maintenance Due Date Last Done Comments DTaP,Tdap and Td Vaccines (1 - Tdap) 1982 Zoster (Shingles) Vaccine (1 of 2) 2013 COVID-19 Vaccine (2023-2 5 season) 2024 05/10/2022, 10/04/2021, 01/17/2021, Additional history exists Influenza Vaccine 06/14/2025 10/04/2021 Adult BMI Follow Up Plan 06/25/2025 06/25/2024 Depression Screening 06/25/2025 06/25/2024 Adult BMI Screening 11/27/2025 11/27/2024 Tobacco Screening 11/27/2025 11/27/2024 Pap Smear 06/25/2027 06/25/2024, 06/25/2024 Medical Devices Not on file Procedures Procedure Name Priority Date/Time Associated Diagnosis Comments HIGH RISK HPV W/HELEN Routine 06/25/2024 5:12 AM EDT Cervical smear, as part of routine gynecological examination from Last 3 Months or Most Recently Relevant to Health Maintenance Results * High risk HPV w/helen (06/25/2024 5:12 AM EDT) Hpv specimen type ThinPrep 06/26/2024 5:12 AM EDT [facility] Hpv 16 Negative Negative^N egative 06/27/2024 6:38 AM EDT [facility] Hpv 18 Negative Negative^N egative 06/27/2024 6:38 AM EDT [facility] Other high risk hpv Negative Negative^N egative [facility]: HPV types 31,33,35,39,45,52,56,58,59,66 and 68 DNA were undetectable. THINP 06/25/2024 5:12 AM EDT 06/25/2024 5:15 AM EDT us Michelle M Shannan BALL SHAGGER-POLICY CANCELLATION CLERK LAB BLOOD ORDERABLES Fin al Result [facility] [address] [facility] [place] [address] [facility] [address] [facility] [place] [address] from Last 3 Months or Most Recently Relevant to Health Maintenance Insurance [facility] [employer] Care Teams Tabular Typist Relationship Specialty Start Date End Date Dandre Osborn DO [address] [place] [address] PCP - General 12/16/17
--- OUTSIDE RECORDS SUMMARY | 2025-03-17 10:01 | XMS_ITS | Clinical Summary ---
Author Organization [facility] Address [address] [place] [address] Care Team Providers Care Cytology Teacher Name Role Phone Dandre Osborn DO Primary Care Provider [phone] Allergies No known active allergies Medications Semaglutide, 1 MG/DOSE, 2 MG/1.5ML SOPN Inject into the skin Active Social History Tobacco Use Types Packs/Day Years Used Date Smoking Tobacco: Never Smokeless Tobacco: Never Alcohol Use Standard Drinks/Week Comments Yes 0 (1 standard drink = 0.6 oz pur e alcohol) maybe once a month Interpersonal Safety Domain Source: IP Abuse Scr eening Answer Date Recorded Physical abuse Denies 02/26/2024 Verbal abuse Denies 02/26/2024 Emotional abuse Denies 02/26/2024 Financial abuse Denies 02/26/2024 Sexual abuse Denies 02/26/2024 Comments No Sex and Gender Information Value Date Recorded Sex Assigned at Not on file Legal Sex Female 2:55 PM EDT Gender Identity Not on file Sexual Orientation Not on file Last Filed Vital Signs Vital Sign Reading Time Taken Comments Blood Pressure 100/67 02/26/2024 11:00 AM EDT Pulse 52 02/26/2024 11:00 AM EDT Temperature 36.1 C (97 F) 02/26/2024 11:00 AM EDT Respiratory Rate 14 02/26/2024 11:00 AM EDT Oxygen Saturation 98% 02/26/2024 11:00 AM EDT Inhaled Oxygen Concentration - - Weight 66 kg (145 lb 8.1 oz) 02/26/2024 8:59 AM EDT Height 157.5 cm (5' 2 ) 02/26/2024 8:59 AM EDT Body Mass Index 26.61 02/26/2024 8:59 AM EDT Plan of Treatment Health Maintenance Due Date Last Done Comments Depression Screen 1975 HIV screen 1978 Hepatitis C screen 1981 DTaP/Tdap/Td vaccine (1 - Tdap) 1982 Pap smear 02/05/1984 Cervical cancer screen 1993 HPV (without or with Pap) 1993 Breast cancer screen 2003 Lipids 2003 Colonoscopy 02/05/2008 Colorectal Cancer Screen 02/05/2008 FIT/FOBT: Average risk 02/05/2008 Fecal-DNA (Cologuard): Average risk 02/05/2008 Sigmoidoscopy/CT colonography 02/05/2008 Pneumococcal 50+ years Vacci ne (1 of 1 - PCV) 2013 Shingles vaccine (1 of 2) 2013 COVID-19 Vaccine (1 - 2023-2 5 season) 2024 Flu vaccine (Season Ended) 2025 Respiratory Syncytial Virus (RSV) or age 60 yrs+ (1 - 1-dose 75+ series) 2038 Hepatitis A vaccine Aged Out No longe r eligible based on patient's age to complete this topic Hepatitis B vaccine Aged Out No longe r eligible based on patient's age to complete this topic Hib vaccine Aged Out No longer eligi ble based on patient's age to complete this topic Meningococcal (ACWY) vaccine Aged Out No longer eligible based on patient's age to complete this topic Meningococcal B vaccine Aged Out No l onger eligible based on patient's age to complete this topic Polio vaccine Aged Out No longer elig ible based on patient's age to complete this topic Insurance Care Teams Cytology Teacher Relationship Specialty Start Date End Date Dandre Osborn DO [address] [place] [id number] PCP - General Internal Medicine 02/26/24
--- OUTSIDE RECORDS SUMMARY | 2025-03-17 10:09 | XMS_ITS | CCD ---
Author Organization [facility] Care Team Providers Care Puller Over Name Role Phone PHYSICIAN, DEFAULT Admitting Unavailable [...] DR GONSALVES Consulting Unavailable ZIEBMIKE, DR REGAN Padro Consulting Unavailable ANURAG, DANDRE Primary Care Unavailable VENKATESH TAYLOR Admitting Unavailable VENKATESH TAYLOR Attending Unavailable SHANNAN COHEN Referring Unavailgiancarlo e ANURAG, DANDRE May Primary Care Unavailable MICHELLE AUGUSTIN Referring Unavailable ANURAG, DANDRE May Primary Care Unavailable NEGRITO, SHEA Referring Unavailable ANURAG, DANDRE May Primary Care Unavailable LINNEA GONZALSE Referring Unavailable ANURAG, DANDRE May Primary Care [...] or physicia Propensity to adverse reactions Comment:Done [facility] Other (1 source) Allergies Reconciled Propensity to adverse reactions Unknown [facility] Other Medications Current Medications Medication Drug Class(es) [...] Sixto Jason MD on 07/23/2024 4:02 PM [facility] [place] MR/CT ARTHROGRAM WRIST RT W INJon 07-22-2024 [place] MR/CT ARTHROGRAM WRIST RT W INJ [place] MR/CT ARTHROGRAM WRIST RT W INJ Indication: Chronic right wrist pain. Consent: Informed consent was obtained from the alert and oriented patient. Patient understands procedure and all of her questions were answered. Timeout: [place] timeout verification procedure was performed. PROCEDURE: Spot [...] Pantoja MD on 07/22/2024 4:47 PM Normal [facility] Cytologyon 06-25-2024 Cytology Normal [facility] Comment on above: Result Comment: [facility] [address] [place] [address] Gynecologic Cytology Consultation Patient Name:ROSENDO AVILESB:1965 (Age: 59)Gender:FTaken:06/25/2024eported:07/18/2024hysician(s):Michelle Augustin, [facility] ([phone])Copy To: Rec. #:[id number]: #[id number] Final Cytologic Interpretation ThinPrep Pap Test (Cervical): Satisfactory for evaluation. NEGATIVE FOR INTRAEPITHELIAL LESION OR MALIGNANCY. The cytologic changes of atrophy are noted. tg/07/18/2024 Interpretation performed at [facility], [address] [place] [address], License number: [id number]. 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 The Pap test is primarily effective for the diagnosis and prevention of squamous cell carcinoma. Regular screening is critical for prevention. ThinPrep liquid-based slides, which meet the Merchandising Team Lead criteria for automated screening, have been screened by the ThinPrep Imaging System (as of 06/30/07) along with an additional manual rescreening by a telecommunications project manager and, if indicated, by a pathologist. HIGH RISK HPV W/GENOon 06-25 HPV 31+33+35+39+45+51+52 +56+58+59+66+68 DNA ORION+probe Ql (Cvx) HPV SPECIMEN TYPE ThinPrep HPV 16 Negative (qualifier value) HPV 18 Negative (qualifier value) OTHER HIGH RISK HPV Negative (qualifier value) HPV types 31,33,35,39,45,52,56 ,58,59,66 and 68 DNA were undetectable. Normal [facility] Comment on above: Performed By: #### 7 1431-1 #### [facility] ([id number]) [address] [place] [address] [facility] ([id number]) [address], [address] [place] [address] MR CERVICAL SPINE WO CONTon 05-22-2024 MR [...] Arora MD on 05/22/2024 7:40 AM Normal [facility] XR WRIST LT MIN 3 VWSon [...] Nelson MD on 05/14/2024 12:58 PM Normal [facility] XR WRIST RT MIN 3 VWSon 08-0 [...] Burns MD on 05/14/2024 1:01 PM Normal [facility] XR FOOT LEFT (MIN 3 VIEWS)on 02-27-2024 [...] Rebecca Arana MD 02/27/24 Final result Normal [facility] MG MAMM SCREEN 3D NHUNG CADon 12-28-2022 MG MAMM SCREEN 3D NHUNG CAD Patient: BRIDGER AVILES Exam Date: 12/28/2022 : 1965 Gender:F Ordering : DR DANDRE OSBORN D.O. Admission #: [id number] Family : Order #: [id number] CLICK HERE TO VIEW EXAM RADIOLOGY REPORT [...] with thyroid cancer at age 53. LOCATION: [facility] BREAST COMPOSITION: Scattered areas fibroglandular density. FINDINGS: [...] Allen M.D. on 12/28/2022 at 12:33 Normal [facility] XR wrist RT 2Von 05-09-2022 [place]R [place] 2[place] [address] XRay Report Signed Patient: Bridger Aviles MR#: [id number] : 1965 Acct:[id number] Age/Sex: 57 / F ADM Date: 05/09/22 Loc: [facility] Room: Type: [facility] Attending Dr: Francine Dobson MD Copies to: Francine Dobson MD Ordering Provider: Francine Dobson MD Date of Service: 05/09/22 XR/XR wrist RT 2V: Right wrist pain 2 viewsRIGHT wrist plain film COMPARISON:None HISTORY:Decreased supervisor malted milk strength on the RIGHT No fracture, dislocation or focal soft tissue abnormality seen. No significant degeneration seen. XR/XR wrist RT 2V IMPRESSION:Unremarka ble exam Impression dictated by: Teddy Long M.D.05/09/2022 5:03 PM Dictation Location: [place] [address] Transcribed By: [facility] 05/09/221702 Dictated By: Teddy Long DO 05/09/221701 Signed By: 05/09/221702 Normal [facility] XR wrist RT 2V [facility] [employer] Other XR wrist RT 2V [facility] [employer] Other XR wrist RT 2V [address] [facility] [employer] Other XR wrist RT 2[place] [address] No rt [employer] Other XR wrist RT 2V XRay Report [employer] Other XR wrist RT 2V Signed [employer] Other XR wrist RT 2V Patient: Bridger Aviles MR#: [id number] [place] [employer] Other XR wrist RT 2V 8497 [employer] Other XR wrist RT 2V : 1965 Acct:[id number] [employer] Other XR wrist RT 2V Age/Sex: 57 / F ADM Date: 05/09/22 [employer] Other XR wrist RT 2V Loc: [facility] Room: Type: [facility] [employer] Other XR wrist RT 2V Attending Dr: Francine Dobson MD [employer] Other XR wrist RT 2V Copies to: Francine Dobson MD [employer] Other XR wrist RT 2V Ordering Provider: Francine Dobson MD [employer] Other XR wrist RT 2V Date of Service: 05/09/22 [employer] Other XR wrist RT 2V XR/XR wrist RT 2V: Right wrist pain [employer] Other XR wrist RT 2V 2 viewsRIGHT wrist plain film [employer] Other XR wrist RT 2V COMPARISON:None [employer] Other XR wrist RT 2V HISTORY:Decreased supervisor malted milk strength on the RIGHT [employer] Other XR wrist RT 2V No fracture, dislocation or focal soft tissue abnormality seen. No significant degeneration seen. [employer] Other XR wrist RT 2V XR/XR wrist RT 2V [employer] Other XR wrist RT 2V IMPRESSION:Unremarka ble exam [employer] Other XR wrist RT 2V Impression dictated by: Teddy Long M.D.05/09/2022 5:03 PM [employer] Other XR wrist RT 2V Dictation Location: [place] [address] [employer] Other XR wrist RT 2V Transcribed By: PWS 05/09/22 [facility] [employer] Other XR wrist RT 2V Dictated By: Teddy Long DO 05/09/22 [facility] [employer] Other XR wrist RT 2V Signed By: [employer] Other XR wrist RT 2V 05/09/22 [facility] [employer] Other CBC AUTO DIFFon 02-28-2022 BASO # 0.1 103/ul Normal 0.0-0.1 [facility] Comment on above: Performed By: #### C BC #### [facility] [address] [place] [address] Dr. Shirin Veras Basophils/100 WBC (Bld) 0.8 % Normal 0.2-2.0 [facility] Comment on above: Performed By: #### C BC #### [facility] [address] [place] [address] Dr. Shirin Veras EO # 0.1 103/ul Normal 0.0-0.7 [facility] Comment on above: Performed By: #### C BC #### [facility] [address] [place] [address] Dr. Shirin Veras Eosinophils/100 WBC (Bld) 1.9 % Normal 0.9-7.0 [facility] Comment on above: Performed By: #### C BC #### [facility] [address] [place] [address] Dr. Shirin Veras Erythrocyte distribution width (RBC) [Ratio] 11.8 % Normal 11.0-15.0 [facility] Comment on above: Performed By: #### C BC #### [facility] [address] [place] [address] Dr. Shirin Veras Hematocrit (Bld) [Volume fraction] 44.3 % Normal 36.0-48.0 [facility] Comment on above: Performed By: #### C BC #### [facility] [address] [place] [address] Dr. Shirin Veras Hemoglobin (Bld) [Mass/Vol] 15.3 g/dL Normal 12.0-16.0 [facility] Comment on above: Performed By: #### C BC #### [facility] [address] [place] [address] Dr. Shirin Veras IG # 0.03 10e3/ul Normal 0.00-0.03 [facility] Comment on above: Performed By: #### C BC #### [facility] [address] [place] [address] Dr. Shirin Veras IG % 0.5 % Normal 0.0-0.5 [facility] Comment on above: Performed By: #### C BC #### [facility] [address] [place] [address] Dr. Shirin Veras LYMPH # 2.6 103/ul Normal 1.2-3.8 [facility] Comment on above: Performed By: #### C BC #### [facility] [address] [place] [address] Dr. Shriin Veras Lymphocytes/100 WBC (Bld) 40.4 % Normal 20.5-60.0 [facility] Comment on above: Performed By: #### C BC #### [facility] [address] [place] [address] Dr. Shirin Veras MANUAL DIFF REQ NO Normal [facility] Comment on above: Performed By: #### C BC #### [facility] [address] [place] [address] Dr. Shirin Veras MCH (RBC) [Entitic mass] 32.6 pg Normal 26.7-34.0 [facility] Comment on above: Performed By: #### C BC #### [facility] [address] [place] [address] [address] Shirin Veras MCHC (RBC) [Mass/Vol] 34.5 g/dL Normal 29.9-35.2 [facility] Comment on above: Performed By: #### C BC #### [facility] [address] [place] [address] [address] Shirin Veras MCV (RBC) [Entitic vol] 94.5 fL Normal 81.0-99.0 [facility] Comment on above: Performed By: #### C BC #### [facility] [address] [place] [address] Dr. Shirin Veras MONO # 0.5 103/ul Normal 0.3-0.8 [facility] Comment on above: Performed By: #### C BC #### [facility] [address] [place] [address] Dr. Shirin Veras Monocytes/100 WBC (Bld) 8.1 % Normal 1.7-12.0 [facility] Comment on above: Performed By: #### C BC #### [facility] [address] [place] [address] Dr. Shirin Veras NEUT # 3.1 103/ul Normal 1.4-6.5 [facility] Comment on above: Performed By: #### C BC #### [facility] [address] [place] [address] Dr. Shirin Veras Neutrophils/100 WBC (Bld) 48.3 % Normal 43.0-75.0 [facility] Comment on above: Performed By: #### C BC #### [facility] [address] [place] [address] [address] Shirin Veras Platelet mean volume (Bld) [Entitic vol] 10.1 fL Normal 9.5-13.5 [facility] Comment on above: Performed By: #### C BC #### [facility] [address] [place] [address] [address] Shirin Veras PLT 224 103/ul Normal 150-450 [facility] Comment on above: Performed By: #### C BC #### [facility] [address] [place] [address] [address] Shirin Veras RBC 4.69 106/ul Normal 4.20-5.40 [facility] Comment on above: Performed By: #### C BC #### [facility] [address] [place] [address] [address] Shirin Veras WBC 6.4 103/ul Normal 4.0-11.0 [facility] Comment on above: Performed By: #### C BC #### [facility] [address] [place] [address] Dr. Shirin Veras GLYCOHEMOGLOBIN A1Con 2021 ADA RECOMMENDATION SEE BELOW Normal [facility] Comment on above: Result Comment: ADA RECOMMENDED LIMIT 4.0 - 6.0 ADA THERAPEUTIC TARGET < 7.0 ACTION SUGGESTED > 7.0 Performed By: #### A 1C #### [facility] [address] [place] [address] Dr. Shirin Veras Glucose [Mass/Vol] 114 mg/dL Normal [facility] Comment on above: Performed By: #### A 1C #### [facility] [address] [place] [address] Dr. Shirin Veras HbA1c (Bld) [Mass fraction] 5.6 % Normal 4.5-6.2 [facility] Comment on above: Performed By: #### A 1C #### [facility] [address] [place] [address] Dr. Shirin Veras LIPID PROFILEon 02-28-2022 CHOL-HDL RATIO NORM SEE BELOW Normal [facility] Comment on above: Result Comment: 3.3 - 4.4 LOW RISK 4.4 - 7.1 AVERAGE RISK 7.1 - 11.0 MODERATE RISK >11.0 HIGH RISK Performed By: #### T SH, CMP, LIPID #### [facility] [address] [place] [address] Dr. Shirin Veras Cholesterol [Mass/Vol] 254 mg/dL Critically high <=200 [facility] Comment on above: Performed By: #### T SH, CMP, LIPID #### [facility] [address] [place] [address] [address] Shirin Veras Cholesterol in HDL [Mass/Vol] 65 mg/dL Critically high 40-60 [facility] Comment on above: Performed By: #### T SH, CMP, LIPID #### [facility] [address] [place] [address] [address] Shirin Veras Cholesterol in LDL [Mass/Vol] 164.2 mg/dL Normal [facility] Comment on above: Performed By: #### T SH, CMP, LIPID #### [facility] [address] [place] [address] Dr. Shirin Veras Cholesterol.total/Ch olesterol in HDL [Mass ratio] 3.9 {ratio} Normal [facility] Comment on above: Performed By: #### T SH, CMP, LIPID #### [facility] [address] [place] [address] [address] Shirin Veras HDL NORMAL > or = 60 mg/dl - LOW CARDIOVASCULAR RISK <40 mg/dl - HIGH CARDIOVASCULAR RISK Normal [facility] Comment on above: Performed By: #### T SH, CMP, LIPID #### [facility] [address] [place] [address] Dr. Shirin Veras LDL CALC NORMAL SEE BELOW Normal [facility] Comment on above: Result Comment: <100 mg/dl OPTIMAL 100 - 129 mg/dl NEAR OR ABOVE OPTIMAL 130 - 159 mg/dl BORDERLINE HIGH 160 - 189 mg/dl HIGH >190 mg/dl VERY HIGH Performed By: #### T SH, CMP, LIPID #### [facility] [address] [place] [address] [address] Shirin Veras Triglyceride [Mass/Vol] 124 mg/dL Normal <=150 [facility] Comment on above: Performed By: #### T SH, CMP, LIPID #### [facility] [address] [place] [address] [address] Shirin Veras VLDL CALC 24.8 mg/dL Normal [facility] Comment on above: Performed By: #### T SH, CMP, LIPID #### [facility] [address] [place] [address] [address] Shirin Veras PROF 14(COMP METB)on 022 Albumin [Mass/Vol] 4.1 g/dL Normal 3.4-5.0 [facility] Comment on above: Performed By: #### T SH, CMP, LIPID #### [facility] [address] [place] [address] [address] Shirin Veras Albumin/Globulin [Mass ratio] 1.2 {ratio} Normal [facility] Comment on above: Performed By: #### T SH, CMP, LIPID #### [facility] [address] [place] [address] [address] Shirin Veras ALP [Catalytic activity/Vol] 79 U/L Normal 46-116 [facility] Comment on above: Performed By: #### T SH, CMP, LIPID #### [facility] [address] [place] [address] [address] Shirin Veras ALT [Catalytic activity/Vol] 30 U/L Normal 14-59 [facility] Comment on above: Performed By: #### T SH, CMP, LIPID #### [facility] [address] [place] [address] [address] Shirin Veras Anion gap [Moles/Vol] 11.4 mmol/L Normal [facility] Comment on above: Performed By: #### T SH, CMP, LIPID #### [facility] [address] [place] [address] [address] Shirin Veras AST [Catalytic activity/Vol] 22 U/L Normal 15-37 [facility] Comment on above: Performed By: #### T SH, CMP, LIPID #### [facility] [address] [place] [address] [address] Shirin Veras Bilirubin [Mass/Vol] 0.5 mg/dL Normal 0.2-1.0 [facility] Comment on above: Performed By: #### T SH, CMP, LIPID #### [facility] [address] [place] [address] [address] Shirin Veras Calcium [Mass/Vol] 8.8 mg/dL Normal 8.5-10.1 [facility] Comment on above: Performed By: #### T SH, CMP, LIPID #### [facility] [address] [place] [address] Dr. Shirin Veras Chloride [Moles/Vol] 102 mmol/L Normal 98-107 [facility] Comment on above: Performed By: #### T SH, CMP, LIPID #### [facility] [address] [place] [address] Dr. Shirin Veras CO2 [Moles/Vol] 29.5 mmol/L Normal 21.0-32.0 [facility] Comment on above: Performed By: #### T SH, CMP, LIPID #### [facility] [address] [place] [address] Dr. Shirin Veras Creatinine [Mass/Vol] 0.69 mg/dL Normal 0.55-1.02 [facility] Comment on above: Performed By: #### T SH, CMP, LIPID #### [facility] [address] [place] [address] Dr. Shirin Veras EGFR-AF ZAMBIAN >60 Normal >=60 [facility] Comment on above: Performed By: #### T SH, CMP, LIPID #### [facility] [address] [place] [address] Dr. Shirin Veras EGFR-NON AF ZAMBIAN >60 Normal >=60 [facility] Comment on above: Performed By: #### T SH, CMP, LIPID #### [facility] [address] [place] [address] Dr. Shirin Veras Globulin (S) [Mass/Vol] 3.3 g/dL Normal [facility] Comment on above: Performed By: #### T SH, CMP, LIPID #### [facility] [address] [place] [address] Dr. Shirin Veras Glucose [Mass/Vol] 90 mg/dL Normal 74-106 [facility] Comment on above: Performed By: #### T SH, CMP, LIPID #### [facility] [address] [place] [address] Dr. Shirin Veras Potassium [Moles/Vol] 3.9 mmol/L Normal 3.5-5.1 [facility] Comment on above: Performed By: #### T SH, CMP, LIPID #### [facility] [address] [place] [address] Dr. Shirin Veras Protein [Mass/Vol] 7.4 g/dL Normal 6.4-8.2 [facility] Comment on above: Performed By: #### T SH, CMP, LIPID #### [facility] [address] [place] [address] Dr. Shirin Veras Sodium [Moles/Vol] 139 mmol/L Normal 136-145 [facility] Comment on above: Performed By: #### T MATT CMP, LIPID #### [facility] [address] [place] [address] Dr. Shirin Veras Urea nitrogen [Mass/Vol] 16.0 mg/dL Normal 7.0-18.0 [facility] Comment on above: Performed By: #### T MATT CMP, LIPID #### [facility] [address] [place] [address] Dr. Shirin Veras Urea nitrogen/Creatinine [Mass ratio] 23.2 mg/mg Normal [facility] Comment on above: Performed By: #### T MATT CMP, LIPID #### [facility] [address] [place] [address] Dr. Shirin Veras TSHon 02-28-2022 TSH 1.145 uIU/mL Normal 0.358-3.740 [facility] Comment on above: Performed By: #### T MATT, CMP, LIPID #### [facility] [address] [place] [address] Dr. Shirin Veras TSH RANGE SEE BELOW Normal [facility] Comment on above: Result Comment: <0.3 4 UIU/ml HYPERTHYROID 0.34-5.60 UIU/ml EUTHYROID >5.60 UIU/ml HYPOTHYROID Performed By: #### T SH, CMP, LIPID #### [facility] [address] [place] [address] Dr. Shirin Veras UA RANDOM W/MICROSCOPICon 05 -18-2022 BACTERIA TRACE Abnormal NONE SEEN [facility] Comment on above: Performed By: #### U AMIC #### [facility] [address] [place] [address] [address] Shirin Veras Bilirubin Ql (U) Negative Normal NEGATIVE [facility] Comment on above: Performed By: #### U AMIC #### [facility] [address] [place] [address] Dr. Shirin Veras CAST NONE SEEN Normal NONE SEEN [facility] Comment on above: Performed By: #### U AMIC #### [facility] [address] [place] [address] [address] Shirin Veras Clarity (U) CLEAR Normal CLEAR [facility] Comment on above: Performed By: #### U AMIC #### [facility] [address] [place] [address] Dr. Shirin Vears Color (U) LT. YELLOW Normal YELLOW [facility] Comment on above: Performed By: #### U AMIC #### [facility] [address] [place] [address] [address] Shirin Veras Crystals LM Nom (Urine sed) NONE SEEN Normal NONE SEEN [facility] Comment on above: Performed By: #### U AMIC #### [facility] [address] [place] [address] Dr. Shirin Veras Epithelial cells LM Ql (Urine sed) RARE Normal NONE SEEN /RARE [facility] Comment on above: Performed By: #### U AMIC #### [facility] [address] [place] [address] Dr. Shirin Veras Glucose Ql (U) Negative Normal NEGATIVE [facility] Comment on above: Performed By: #### U AMIC #### [facility] [address] [place] [address] [address] Shirin Veras Hemoglobin Ql (U) Negative Normal NEGATIVE [facility] Comment on above: Performed By: #### U AMIC #### [facility] [address] [place] [address] Dr. Shirin Veras Ketones Ql (U) Negative Normal NEGATIVE [facility] Comment on above: Performed By: #### U AMIC #### [facility] [address] [place] [address] [address] Shirin Veras LEUKOCYTES TRACE Abnormal NEGATIVE [facility] Comment on above: Performed By: #### U AMIC #### [facility] [address] [place] [address] [address] Shirin Veras MUCOUS TRACE Abnormal NONE SEEN [facility] Comment on above: Performed By: #### U AMIC #### [facility] [address] [place] [address] [address] Shirin Veras Nitrite Ql (U) Negative Normal NEGATIVE [facility] Comment on above: Performed By: #### U AMIC #### [facility] [address] [place] [address] [address] Shirin Veras pH (U) 6.0 [pH] Normal 5-9 [facility] Comment on above: Performed By: #### U AMIC #### [facility] [address] [place] [address] [address] Shirin Veras RBC 0-2 Normal 0-2 [facility] Comment on above: Performed By: #### U AMIC #### [facility] [address] [place] [id number] Dr. Shirin Veras SPEC GRAVITY 1.025 Normal 1.005-<=1.025 [facility] Comment on above: Performed By: #### U AMIC #### [facility] [address] [address] [address] Shirin Veras UA PROTEIN Negative Normal NEGATIVE/ TRACE [facility] Comment on above: Performed By: #### U AMIC #### [facility] [address] [address] [address] Shirin Veras Urobilinogen Qn (U) 0.2 {Laurie'U}/dL Normal 0.2 - 1. 0 [facility] Comment on above: Performed By: #### U AMIC #### [facility] [address] [address] [address] Shirin Veras WBC 2-5 Abnormal NONE SEEN [facility] Comment on above: Performed By: #### U AMIC #### [facility] [address] [place], [place] [address] Dr. Shirin Veras US THYROIDon 02-28-2022 US [...] one year is recommended. TR 3: The [employer] TI-RADS committee's white paper recommendations for thyroid lesions classified as TR3 (mildly suspicious) are listed below: > 1.5 cm. Follow-up ultrasound in 1, 3, and 5 years. > 2.5 cm. FNA. J. Am Graciela Radiol 2017;14:587-595. TR 2: TI-RADS 2: Benign nodules. Noticeably benign pattern (0% risk of malignancy) Electronically authenticated by: REGAN ALLEN Date: 2022-02-28 10:09 Normal [facility] VITAMIN D 25 OHon 02-28-2022 VIT D 25-OH 41.6 ng/mL Normal [facility] Comment on above: Performed By: #### V ITAD #### [facility] [address] [place], [place] [address] Dr. Shirin Veras VIT D RANGES SEE BELOW Normal [facility] Comment on above: Result Comment: <20 ng/mL Vit D deficient 20 - <30 ng/mL Vit D insufficient 30 - 100 ng/mL Vit D sufficient >100 ng/mL Potential Toxicity Performed By: #### V ITAD #### [facility] [address] [place], [place] [address] Dr. Shirin Veras XR hip LT min 2V(w/wo pelvis )*on 09-19-2021 XR hip LT min 2V(w/wo pelvis)* [facility] [address] [place] [id number] XRay Report Signed Patient: Bridger Aviles MR#: [id number] : 1965 Acct:[id number] Age/Sex: 56 / F ADM Date: 09/19/21 Loc: [facility] Room: Type: [facility] CLI Attending Dr: Arsh Robert [...] Holland Jr., M.D.09/19/2021 7:03 PM Dictation Location: [place] [address] Transcribed By: [facility] 09/19/211902 Dictated By: Curtis Holland Jr, MD 09/19/211901 Signed By: 09/19/211902 [facility] Vital Signs Date Time Vital Sign Value Performing Clinician Facility 04-08-2023 11:30-0400 Body height 157.48 cm [facility] Other [facility] Other 04-08-2023 11:30-0400 Body mass index (BMI) [Ratio] 28.71 kg/m2 [facility] Other 04-08-2023 11:30-0400 Body weight 71.22 kg [facility] Other [facility] Other 04-08-2023 11:30-0400 Diastolic blood pressure 81 mm[Hg] [facility] Other [facility] Other 04-08-2023 11:30-0400 Respiratory rate 12 /min Dandre Osborn Other [facility] Other 04-08-2023 11:30-0400 Systolic blood pressure 131 mm[Hg] Dandre Osborn Other [facility] Other 05-09-2022 16:00-0400 Body height 157.48 cm Francine Dobson Other [facility] Other 05-09-2022 16:00-0400 Body mass index (BMI) [Ratio] 28.53 kg/m2 Francine Dobson Other [facility] Other 05-09-2022 16:00-0400 Body weight 70.76 kg Francine Dobson Other [facility] Other 02-13-2022 16:15-0400 Body height 157.48 cm Arsh Robert Other [facility] Other 02-13-2022 16:15-0400 Body mass index (BMI) [Ratio] 28.53 kg/m2 Arsh Robert Other [facility] Other 02-13-2022 16:15-0400 Body weight 70.76 kg Arsh Robert Other [facility] Other Encounters Encounter Date Encounter Type Care Provider Facility Start: 11-27-2024 End: 11-27-2024 ambulatory [facility] Start: 08-05-2024 End: 08-05-2024 ambulatory [facility] Start: 07-22-2024 End: 07-22-2024 ambulatory [facility] Start: 06-25-2024 End: 06-25-2024 ambulatory MICHELLE AUGUSTIN [facility] Start: 06-25-2024 Encounter for gynecological examination (general) (routine) without abnormal findings [facility] Start: 06-25-2024 End: 06-25-2024 ambulatory MICHELLE M [facility] Start: 06-25-2024 Encounter for gynecological examination (general) (routine) without abnormal [facility] Start: 06-11-2024 End: 06-11-2024 ambulatory [facility] Start: 05-20-2024 End: 05-20-2024 ambulatory [facility] Start: 05-13-2024 End: 05-13-2024 [facility] Start: 03-17-2024 End: 03-17-2024 ambulatory [facility] Start: 02-26-2024 End: 02-26-2024 ambulatory DANDRE OSBORN [facility] Start: 01-31-2024 End: 01-31-2024 ambulatory [facility] Start: 05-13-2023 End: 05-13-2023 ambulatory Dandre Osborn Other [facility] Other Start: 05-13-2023 Telephone encounter [facility] Start: 04-11-2023 End: 04-11-2023 ambulatory Dandre Osborn Other [facility] Other Start: 04-11-2023 Telephone encounter [facility] Start: 04-08-2023 End: 04-08-2023 ambulatory Dandre Osborn Other [facility] Other Start: 04-08-2023 Encounter for genera l adult medical examination without abnormal findings Dandre Osborn [facility] Start: 04-08-2023 Periodic preventive med est patient 40-64yrs Dandre Osborn [facility] Start: 12-28-2022 End: 12-29-[address] DANDRE OSBORN Facility: Start: 10-13-2022 End: 10-13-[address] DANDRE OSBORN Facility:[facility] Start: 10-12-2022 End: 10-12-2022 ambulatory Dandre Osborn Other [facility] Other Start: 10-12-2022 Telephone encounter [facility] Start: 08-03-2022 End: 08-03-2022 ambulatory Francine Souzasergio Other [facility] Other Start: 08-03-2022 Office outpatient vi sit 15 minutes Francine Calvey [facility] Start: 07-10-2022 Gynecological examination normal Dandre Osborn Other [facility] Other Start: 05-09-2022 End: 05-09-2022 ambulatory Francine Dobson Other [facility] Other Start: 05-09-2022 Office outpatient ne w 30 minutes Francine Calvey [facility] Start: 03-29-2022 End: 03-29-2022 ambulatory Arsh Robert Other [facility] Other Start: 03-29-2022 Office outpatient vi sit 15 minutes Arsh Robert [facility] Start: 03-21-2022 (Procedure) Short Arsh Robert [facility] Start: 03-21-2022 End: 03-21-2022 ambulatory Arsh Robert Other [facility] Other Start: 03-14-2022 End: 03-14-2022 ambulatory Arsh Robert Other [facility] Other Start: 03-14-2022 Telephone encounter Arsh Robert [facility] Start: 03-06-2022 Encounter for genera l adult medical examination without abnormal findings DR DANDRE OSBORN [facility] Start: 02-28-2022 End: 03-01-[address] DANDRE OSBORN Facility:[facility] Start: 02-28-2022 End: 03-01-2022 Encounter for general adult medical examination without abnormal findings DR DANDRE OSBORN Facility: Start: 02-21-2022 End: 02-21-2022 ambulatory Arsh Robert Other [facility] Other Start: 02-21-2022 Telephone encounter [facility] Start: 02-16-2022 Adult health examination Walter Osborn Other [facility] Other Start: 02-13-2022 End: 02-13-2022 ambulatory Arsh Robert Other [facility] Other Start: 02-13-2022 Office outpatient vi sit 15 minutes Arsh Robert [facility] Start: 10-19-2021 Gynecological examination abnormal Dandre Anurag Other [facility] Other Start: 10-16-2021 End: 10-16-2021 ambulatory Arsh Robert Other [facility] Other Start: 10-16-2021 Telephone encounter [facility] Start: 12-11-2018 End: 12-12-2018 Patient encounter procedure DEFAULT PHYSICIAN Facility:[facility] Procedures Date Procedure Procedure Detail Performing Clinician Start: 03-17-2024 Follow-up visit Follow-up SHEA LEAL Start: 01-25-2021 End: 07-12-2022 Depression screening Dandre Osborn Other Start: 01-12-2019 End: 11-26-2019 General examination of patient Dandre Osborn Other Screening for malign ant neoplasm of breast Dandre Osborn Other Immunizations Immunization Date Immunization Notes Care Provider Demetrius beard 05-10-2022 COVID-19 Pfizer Dandre robbins Other [facility] Other 10-04-2021 COVID-19 Vaccine Pfi zer - Documentation Purposes Only Dandre Anurag Other [facility] Other 01-17-2021 COVID-19 Vaccine Pfi zer - Documentation Purposes Only Dandre Osborn Other [facility] Other 12-26-2020 COVID-19 Vaccine Pfi zer - Documentation Purposes Only Dandre Osborn Other [facility] Other Payers Date Payer Category Payer Medicare [id number] 1965 Unknown [id number] 2.16.8 40.1.349548.3.579.2.647 1965 Unknown [id number] 2.16.84 0.1.263117.3.579.2.593 1965 Unknown [id number] 2.16.84 0.1.522490.3.579.2.593 1965 Unknown [id number] 2.16.84 0.1.128880.3.579.2.593 1965 Unknown [id number] 2.16.8 40.1.861270.3.579.2.177 1965 Unknown [id number] 2.16.8 40.1.644108.3.579.2.1286 1965 Unknown [id number] 2.16.8 40.1.414318.3.579.2.1286 1965 Unknown [id number] 2.16.8 40.1.303187.3.579.2.1286 1965 Unknown [id number] 2.16.8 40.1.095974.3.579.2.1286 1965 Unknown [id number] 2.16.8 40.1.610444.3.579.2.1286 1965 Unknown [id number] 2.16.8 40.1.384913.3.579.2.1286 1963 Unknown [id number] 2.16. 840.1.364113.3.579.2.1286 1963 Unknown [id number] 2.16.8 40.1.202651.3.579.2.6 1965 Unknown [id number] 2.16.8 40.1.132010.3.579.2.1286 1965 Unknown [id number] 2.16.8 40.1.115431.3.579.2.1285 1965 Unknown [id number] 2.16.8 40.1.504556.3.579.2.1286 1965 Unknown [id number] 2.16.8 40.1.263823.3.579.2.1285 1965 Unknown [id number] 2.16.8 40.1.179649.3.579.2.1286 1965 Unknown [id number] 2.16.8 40.1.339686.3.579.2.1286 1961 [facility] [id number] 2.16.840.1.329256.19 1961 Unknown [id number] 2.16. 840.1.007063.19 Unknown Social History Date Type Detail Facility Sex Assigned At [facility] Other Evaluation note 04-11-2023 Note Date & Type Note Facility 04-11-2023 Evaluation note Encounter Date Diagnosis Assessment Notes Mar, Overweight (ICD-10 - E66.3) [facility] [employer] Other Evaluation note 04-08-2023 Note Date & [...] mammogram for breast cancer (ICD-10 - Z12.31) [facility] Other Evaluation note 08-03-2022 Note Date & [...] Jul, Right wrist pain (ICD-10 - M25.531) [facility] Other Evaluation note 05-09-2022 Note Date & Type Note Facility 05-09-2022 Evaluation note Encounter Date Diagnosis Assessment Notes Apr, De Quervain's tenosynovitis, right (ICD-10 - M65.4) Occupational therapy ordered and patient instructed on the use of Voltaren Gel Apr, FCU (flexor carpi ulnaris) tenosynovitis (ICD-10 - M65.9) Apr, Right wrist pain (ICD-10 - M25.531) [facility] Other Evaluation note 03-29-2022 Note Date & [...] Above note written by Jeffrey Bean LPN, Cheese [employer]. Edited and approved by Dr. Arsh Robert MD. [facility] Other Evaluation note 02-13-2022 Note Date & [...] at this time she notes the stephen [id number]-fbmepm is too much for her, we discussed [...] Above note written by Jeffrey Bean LPN, Cheese Maker. Edited and approved by Dr. Arsh Robert MD. [facility] Other Evaluation note Note Date & Type Note Facility Evaluation note No Information [facility] Other History general Narrative - Reported Note Date & Type Note Facility History general Narrative - Reported Type Medical History back pain Medical History Arthritis Medical History joint problems Medical History muscle spasm Medical History nodules,skin Medical History degenerative joint disease Medical History Radial styloid tenosynovitis Surgical History bone spur removal Surgical History tubal ligation Hospitalization History see above surgical histo ry [facility] Other History general Narrative - Reported Note [...] COLONOSCOPY Hospitalization History see above surgical histo [employer] Other History general Narrative - Reported Note [...] Hospitalization History see above surgical histo ry [facility] Other Summary Purpose Family History No Family [...] section and content) DATE CREATED AUTHOR 12/12/2018 [facility] DATE CREATED AUTHOR AUTHOR'S ORGANIZ ATION 05/17/2022 [facility] DATE CREATED AUTHOR AUTHOR'S ORGANIZ ATION 01/06/2023 [facility] DATE CREATED AUTHOR AUTHOR'S ORGANIZ ATION 02/28/2024 [facility] DATE CREATED AUTHOR AUTHOR'S ORGANIZ ATION 07/20/2024 [facility] DATE CREATED AUTHOR AUTHOR'S ORGANIZ ATION 07/24/2024 [facility] DATE CREATED AUTHOR AUTHOR'S ORGANIZ ATION 11/29/2024 [facility] REASON FOR VISIT [...] BE BASED ON THE PRIMARY CLINICAL RECORDS. [employer] provides no warranty or guarantee of the accuracy or completeness of information in this document.
[2025-03-17 10:31] LABS: Basophils Percent Auto 0.6 % (0.2-2.0); Eosinophils Absolute Auto 0.1 10^3/uL (0.0-0.7); Eosinophils Percent Auto 1.9 % (0.9-7.0); Hemoglobin 14.6 g/dL (12.0-16.0); Immature Granulocytes Abs Auto 0.02 10^3/uL (0.00-0.03); Immature Granulocytes Pct Auto 0.3 % (0.0-0.5); Lymphocytes Absolute Auto 2.5 10^3/uL (1.2-3.8); Lymphocytes Percent Auto 39.6 % (20.5-60.0); Mean Corpuscular HGB Conc 34.8 g/dL (29.9-35.2); Mean Corpuscular Hemoglobin 31.9 pg (26.7-34.0); Mean Corpuscular Volume 91.7 fL (81.0-99.0); Mean Platelet Volume 10.1 fL (9.5-13.5); Monocytes Absolute Auto 0.5 10^3/uL (0.3-0.8); Monocytes Percent Auto 8.6 % (1.7-12.0); Platelet Count 220 10^3/uL (150-450); Red Blood Count 4.58 10^6/uL (4.20-5.40); Red Cell Distribution Width 11.8 % (11.0-15.0); White Blood Count 6.2 10^3/uL (4.0-11.0)
[2025-03-17 11:07] LABS: Alanine Aminotransferase 31 U/L (14-59); Albumin Globulin Ratio 1.3; Albumin Level 3.9 g/dL (3.4-5.0); Alkaline Phosphatase 85 U/L (46-116); Anion Gap 10.4; Aspartate Amino Transferase 24 U/L (15-37); BUN Creatinine Ratio 16.7; Bilirubin Total 0.6 mg/dL (0.2-1.0); Carbon Dioxide 31.7 mmol/L (21.0-32.0); Chloride 105 mmol/L (98-107); Estimated GFR (African America >60 (>=60 mL/min/1.73m^2); Estimated GFR (Non-African Ame >60 (>=60 mL/min/1.73m^2); Glucose 89 mg/dL (74-106); Potassium 4.1 mmol/L (3.5-5.1); Sodium 143 mmol/L (136-145); Total Protein 6.9 g/dL (6.4-8.2)
== END 2025-03-17 09:57 | disposition home or self-care (01) ==
LOC: LAB 09:59
PROVIDERS: PCP Internal Medicine; Visit Provider Registered Nurse
DX: M15.0 Primary generalized (osteo)arthritis (principal); E55.9 Vitamin D deficiency, unspecified; Z79.899 Other long term (current) drug therapy
CPT/HCPCS: 36415; 80053; 82306; 85025